=== PATIENT | female | born 1950 | race Caucasian/White ===

== ENCOUNTER 2023-06-01 10:30 | Inpatient (IN) | payer MEDICARE, MEDICAID, SELFPAY ==
[2023-06-01] VITALS (19 sets, daily range): BP systolic 104–139; BP diastolic 67–89; PULSE 108–123; RESP 20–25; TEMP 36.3–36.4; O2SAT 97–100
--- NOTE | ~2023-06-01 | US_ITS ---
EXAMINATION: US thoracentesis DATE: 06/02/2023 12:08 INDICATION: Left pleural effusion TECHNIQUE: The procedure and its risks and benefits were discussed with the patient. Potential risks discussed included bleeding, infection, and pneumothorax. The patient understood the risks and agreed to proceed. The skin was prepped and draped in sterile fashion. 1% lidocaine was used for local anes thesia. Under ultrasound guidance, a 5 Fr catheter with trochar was advanced into the left pleural ef fusion. Fluid was aspirated. The catheter was removed, and a dressing was applied. There were no imme diate complications. FINDINGS: Ultrasound images demonstrate a moderate-sized left pleural effusion and the catheter within the flui d. IMPRESSION: 1. Successful ultrasound-guided thoracentesis yielding 800 mL of dark sheila-colored fluid. Reviewed, dictated and finalized at location A. E TRAVEL IMPRESSION: 1. Successful ultrasound-guided thoracentesis yielding 800 mL of dark sheila-co lored fluid.
--- NOTE | ~2023-06-01 | XR_ITS ---
EXAMINATION: XR chest 1V portable DATE: 06/06/2023 13:27 INDICATION: Pleural effusion TECHNIQUE: frontal view of the chest was obtained. COMPARISON: Chest radiograph dated and CT dated 06/01/2023 FINDINGS: Increased gradient of basilar predominant hazy airspace opacities in the right mid to lower and left lower lung zones. There is blunting at the bilateral costophrenic angles. Triangular region of retroc ardiac consolidation at the medial left lower lung zone consistent with left lower lobe collapse. No pulmonary edema or pneumothorax. Calcified right upper lobe nodule consistent with old granulomatous disease. The cardiomediastinal silhouette is normal. Upper thoracic levoscoliosis with moderate thora cic spondylosis. Likely splenic artery embolization coils in the left upper quadrant. IMPRESSION: 1. Increased small bilateral pleural effusions with associated basilar atelectasis and/or pneumonia i ncluding likely left lower lobar collapse. Reviewed, dictated and finalized at location B. IMPRESSION: 1. Increased small bilateral pleural effusions with associated basilar atelecta sis and/or pneumonia including likely left lower lobar collapse.
--- NOTE | ~2023-06-01 | XR_ITS ---
EXAMINATION: XR chest 1V portable Exam Date/Time: 06/07/2023 16:15 CDT HISTORY: assess LLL effusion Comparison: 06/06/2023. RESULT: Lines, tubes, and devices: Left upper quadrant embolization coils. Lungs and pleura: Similar graded bilateral mid and lower lung opacities. Unchanged retrocardiac cons olidation and mild bilateral costophrenic angle blunting. Cardiomediastinal silhouette: Stable. Other: No acute osseous or upper abdominal finding. IMPRESSION: Unchanged likely left lower lobe collapse with pulmonary edema/lower lung atelectasis, and small bila teral pleural effusions. Reviewed, dictated and finalized at location K. IMPRESSION: Unchanged likely left lower lobe collapse with pulmonary edema/lower lung atele ctasis, and small bilateral pleural effusions.
--- NOTE | ~2023-06-01 | XR_ITS ---
EXAMINATION: XR chest 2V DATE: 06/01/2023 12:12 INDICATION: Weakness, pneumonia TECHNIQUE: AP and lateral views of the chest are obtained. COMPARISON: None available FINDINGS: The left lower lobe is collapsed. There is a small left pleural effusion. The cardiac silho uette is obscured. There is no pneumothorax. There is severe thoracic spondylosis. Healed left-sided rib fractures are noted. IMPRESSION: 1. Left lower lobe collapse. Recommend further evaluation with contrast-enhanced CT of the chest to e valuate for underlying etiology. 2. Small left pleural effusion. Reviewed, dictated and finalized at location B. T DESIGNER IMPRESSION: 1. Left lower lobe collapse. Recommend further evaluation with contrast-enhance d CT of the chest to evaluate for underlying etiology. 2. Small left pleural effusion.
--- NOTE | ~2023-06-01 | US_ITS ---
EXAMINATION: US venous doppler [facility] DATE: 06/02/2023 12:08 INDICATION: Lower extremity swelling TECHNIQUE: Rodrigues scale images without and with compression and Doppler images of the bilateral lower e xtremity veins were obtained. COMPARISON: None FINDINGS: The right common femoral vein, profunda femoral vein, femoral vein, popliteal vein, peroneal trunk, p osterior tibial veins, and greater saphenous vein are patent. The left common femoral vein, profunda femoral vein, femoral vein, popliteal vein, peroneal trunk, po sterior tibial veins, and greater saphenous vein are patent. IMPRESSION: 1. Patent bilateral lower extremity veins. No evidence of deep venous thrombosis. Reviewed, dictated and finalized at location L. UNT ADJUSTER IMPRESSION: 1. Patent bilateral lower extremity veins. No evidence of deep venous thrombosi s.
--- NOTE | ~2023-06-01 | CT_ITS ---
Clinical Indication: Sepsis CT Scan of the Chest, Abdomen, and Pelvis with Contrast: Technique: Contiguous sections were acquired throughout the chest, abdomen, and pelvis after intraven ous administration of 100 cc of Omnipaque 350. Dose reduction technique was used on this scan by reta youngblood automated exposure control and iterative reconstruction technique. The dose-length product (DL P) was 312.34 mGy-cm. Findings: There is no evidence of any significant mediastinal, hilar or axillary lymphadenopathy. There is exte nsive arthroscopic calcification of the aorta. Probable high-grade stenosis at the very proximal left subclavian artery. No pericardial effusion. Large left pleural effusion is present, with partial left upper lobe atelectasis and near complete le ft lower lobe atelectasis. There is a 2.3 cm fluid collection within the parenchyma of the collapsed left lower lobe (axial image 81). Small layering right pleural effusion present, with minimal right b asilar atelectatic change. There is mild to moderate emphysema in the upper lobes. Small hiatal hernia noted. There is probable diffuse fatty infiltration of liver. The gallbladder, adrenals and kidneys are with in normal limits. Probably pancreatic duct stent present with extensive pancreatic calcifications, co mpatible with chronic pancreatitis. There are probable endovascular coils at the splenic hilum region . Spleen is very heterogeneous in appearance, with some areas of probable intraparenchymal cystic amira nge or fluid collections, essentially towards the superior aspect. There are extensive vascular calcifications of the aorta and iliac vessels. There is probable high-gr suleiman stenosis of the left common iliac artery. There is probable complete occlusion of the right commo n iliac artery with reconstitution at the bifurcation. No bowel obstruction or bowel wall thickening. There is no evidence to suggest acute appendicitis. Urinary bladder is unremarkable. No adnexal mass evident. Small amount of pelvic ascites present. Impression: Large left pleural effusion with near complete left lower lobe atelectasis and partial right upper lo be atelectasis. 2.3 cm fluid collection within the parenchyma of the left lower lobe, indeterminate. Small pulmonary abscess is a potential consideration versus other cystic lesions. Small right pleural effusion. Mild to moderate upper lobe emphysema. Markedly heterogeneous appearance of the spleen with areas of intraperitoneal cystic change or fluid collection/towards the superior aspect. There are also endovascular coils in the splenic hilum. Findi ngs could reflect chronic changes related to prior splenic trauma or infarcts, versus possibly acute splenic laceration. Correlate with any relevant recent trauma. No evidence of intraperitoneal hemorrh age. Chronic pancreatitis with main pancreatic stent present. Small at the pelvic ascites. Extensive atherosclerotic disease, with high-grade stenoses at the proximal left subclavian artery, l eft common iliac artery, and complete occlusion at the right common iliac artery. Diffuse fatty infiltration of liver. Reviewed, dictated and finalized at location . WETTER Impression: Large left pleural effusion with near complete left lower lobe atelectasis and partial right upper lobe atelectasis. 2.3 cm fluid collection within the parenchyma of the left lower lobe, indetermi hamilton. Small pulmonary abscess is a potential consideration versus other cystic lesions. Small right pleural effusion. Mild to moderate upper lobe emphysema. Markedly heterogeneous appearance of the spleen with areas of intraperitoneal c ystic change or fluid collection/towards the superior aspect. There are also en
--- NOTE | ~2023-06-01 | XR_ITS ---
EXAMINATION: [id number]_[id number]_CR DATE: 06/02/2023 12:16 INDICATION: Left pleural effusion postthoracentesis TECHNIQUE: frontal view of the chest was obtained. COMPARISON: Chest radiograph dated 06/01/23 FINDINGS: Improved aeration in the left lower lung zone with some residual opacities at the left lung base whic h could represent small pleural effusion, atelectasis or pneumonia. Mild hazy opacities at the right lower lung zone suggesting additional smaller right pleural effusion and associated atelectasis versu s pneumonia. No pulmonary edema or pneumothorax. Cardiomediastinal silhouette is normal. Thoracic dex troscoliosis with moderate spondylosis. Likely splenic artery embolization coils in the left upper qu adrant. Tip of a likely pancreatic duct stent projects over the L2 vertebral body. IMPRESSION: 1. Opacities at the bilateral lower lung zones, left greater than right which could represent atelect asis, pneumonia, small pleural effusions or some combination thereof. Reviewed, dictated and finalized at location A. ORATE LICENSED BROKER IMPRESSION: 1. Opacities at the bilateral lower lung zones, left greater than right which c ould represent atelectasis, pneumonia, small pleural effusions or some combinat ion thereof.
--- NOTE | ~2023-06-01 | US_ITS ---
EXAMINATION: US arterial ankle brachial ind DATE: 06/03/2023 13:58 INDICATION: Peripheral arterial disease. TECHNIQUE: Segmental pressures and plethysmographic and Doppler waveforms of the brachial and lower e xtremity arteries were obtained. COMPARISON: None. FINDINGS: Right and left brachial artery pressures of 132 mm Hg and 119 mm Hg, respectively, are concordant (no rmal difference <= 30 mmHg). The right ankle-brachial index (DENISE) is 0.74 (normal >= 0.9-1.0). The right great toe-brachial index (TBI) is 0.48 (normal >= 0.65). Arterial Doppler waveforms are biphasic at the ankle. The left DENISE is 0.75. The left TBI is 0.36. Arterial Doppler waveforms are biphasic at the ankle. IMPRESSION: 1. Moderately decreased ABIs, consistent with arterial occlusive disease. Reviewed, dictated and finalized at location E. TZ MINER BLASTING
--- NOTE | ~2023-06-01 | XR_ITS ---
EXAMINATION: XR chest 2V DATE: 06/08/2023 13:50 INDICATION: Pleural effusion. TECHNIQUE: Frontal and lateral views of the chest were obtained. COMPARISON: Chest single view 06/07/2023 FINDINGS: There is mild scarring at the lung apices. There are moderate-sized pleural effusions. Ther e is dependent atelectasis bilaterally. No pneumothorax. The heart size is normal. There are emboliza tion coils in left upper quadrant abdomen. IMPRESSION: 1. Moderate-sized pleural effusions. Reviewed, dictated and finalized at location A.
--- NOTE | ~2023-06-01 | CT_ITS ---
CT head without contrast Indication: Mental status change Technique: Serial scans were obtained through the brain without the administration of contrast. Dose reduction technique was used on this scan by utilizing automated exposure control and iterative recon struction technique. The dose-length product (DLP) was 908.00 mGy-cm. Findings: There is no evidence of intracranial hemorrhage, mass lesion, or acute infarct. Chronic lef t frontal lobe encephalomalacia noted. The ventricles and subarachnoid spaces are dilated, consistent with moderate atrophy. Low attenuation regions are seen within the periventricular white matter marcin aterally, likely representing changes from chronic microvascular ischemic disease. Left frontal crani otomy noted. There is no evidence of edema, mass effect or midline shift. The visualized paranasal sinuses and mastoid air cells are clear. Impression: No intracranial hemorrhage, mass, or acute infarct. Chronic left frontal lobe encephalomalacia with overlying left frontal craniotomy. Atrophy and chronic white matter changes, as above. Reviewed, dictated and finalized at [facility]. FRONT END DEVELOPER Impression: No intracranial hemorrhage, mass, or acute infarct. Chronic left frontal lobe encephalomalacia with overlying left frontal cranioto my. Atrophy and chronic white matter changes, as above.
--- NOTE | 2023-06-01 10:44 | ECG_ITS ---
Measurements Intervals [place] Rate: 118 P: 76 DE: 174 QRS: -35 QRSD: 84 T: 74 QT: 324 QTc: 455 Interpretive Statements SINUS TACHYCARDIA LEFT AXIS DEVIATION NONSPECIFIC T-WAVE ABNORMALITY- HIGH LATERAL LEADS BASELINE ARTIFACT- I, III, AVR, AVL ABNORMAL ECG NO PREVIOUS ECG AVAILABLE FOR COMPARISON Electronically Signed On 06-01-2023 10:55:00 BOOM MASTER by Godfrey Brewer D.O.
[2023-06-01 11:44] LABS: Basophils Absolute Auto 0.1 K/mm3 (0.0-0.1); Basophils Percent Auto 0.3 % (0.2-1.2); Eosinophils Absolute Auto 0.1 K/mm3 (0-0.3); Eosinophils Percent Auto 0.5 % (0-4.4); Hematocrit 30.8 % (37.0-47.0); Hemoglobin 9.5 g/dL (12.0-15.0); Immature Granulocyte Absolute 0.22 K/mm3 (0.00-0.031); Immature Granulocyte Percent A 1.3 % (0-0.5); Lymphocytes Absolute Auto 1.18 K/mm3 (0.9-3.2); Lymphocytes Percent Auto 6.8 % (18.3-44.2); Mean Corpuscular HGB Conc 30.8 g/dl (32-36); Mean Corpuscular Hemoglobin 27.7 pg (26-34); Mean Corpuscular Volume 89.8 fl (80-100); Monocytes Absolute Auto 0.5 K/mm3 (0.1-0.6); Monocytes Percent Auto 2.9 % (2.6-8.5); Neutrophils Absolute Auto 15.4 K/mm3 (1.3-6.7); Neutrophils Percent Auto 88.2 % (45.5-73.1); Platelet Count Result 168 k/mm3 (150-375); Red Blood Count 3.43 M/mm3 (4.2-5.4); Red Cell Distribution Width 18.9 % (11.5-14.5); White Blood Count 17.4 K/mm3 (4.5-10.0)
[2023-06-01 11:54] LABS: INR 2.1; Prothrombin Time 25.6 Seconds (11.1-14.7)
[2023-06-01 11:55] LABS: Partial Thromboplastin Time 39.7 SECONDS (22.3-36.8)
[2023-06-01 12:11] LABS: Lactic Acid Reflex 2.7 mmol/L (0.7-2.0)
[2023-06-01 12:15] LABS: Alanine Aminotransferase 16 U/L (6-35); Albumin Level 2.2 g/dL (3.5-5.1); Alkaline Phosphatase 132 U/L (38-126); Anion Gap 4 mmol/L (8-16); Aspartate Amino Transferase 15 U/L (14-36); Bilirubin,Total 0.5 mg/dL (0.2-1.3); Blood Urea Nitrogen 11 mg/dL (7-17); Calcium 8.3 mg/dL (8.4-10.2); Carbon Dioxide 24 mmol/L (22-30); Chloride 107 mmol/L (98-107); Estimated Glomerular Filt Rate > 60; Glucose 354 mg/dL (65-110); Potassium 4.9 mmol/L (3.4-5.0); Sodium 135 mmol/L (137-145)
--- NOTE | 2023-06-01 12:19 | ED.WEAKNESS ---
HPI - Weakness General Chief complaint: Weakness Stated complaint: lethargic, C-Diff + Time Seen by Provider: 06/01/23 11:02 History of Present Illness HPI Narrative: Patient is a 72-year-old female here from a facility for concerns for worsening of mental status. She is reportedly currently being treated for C diff and pneumonia. Patient unsure of why she is here, speaks nonsensically. Unable to provide history. Spoke with Jaquelin from [facility], came there in April was admitted there with bilateral pneumonia initially. She was also diagnosed with C.diff. She is supposed to be finishing her vanco for C.diff today however continues to have diarrhea. Recently had COVID. Has poor PO intake over the last couple of days. SHe had an outpatient CXR on 05/29 which showed a left sided pneumonia. She got one dose of IM rocephin yesterday. She is more confused than normal today and weaker than usual. Yesterday she was also complaining of lower back pain. She is normally on 3L NC. Related Data Allergies Allergy/AdvReac Type Severity Reaction Status Date / Time No Known Allergies Allergy Verified 06/01/23 11:44 Review of Systems Review of Systems: ROS unobtainable: Yes unobtainable due to mental status PMFSH Social History Social History Smoking status: Former smoker Exam Narrative: GENERAL: Cachectic, ill-appearing HEAD: Normocephalic, atraumatic. EYES: PERRLA and EOMI. ENT: Nares clear. Mucous membranes moist. NECK: Supple. CHEST: Coarse bilateral breath sounds. No respiratory distress. HEART: Tachycardic. Normal peripheral pulses. ABDOMEN: Diffusely tender with some voluntary guarding. Well-healed midline surgical scar present. EXTREMITIES: Normal range of motion. No edema. SKIN: Warm, dry, no rash. NEURO: No focal deficits. Alert and oriented x1. Course Course Emergency Course: Chart review performed, patient here from [facility] for weakness, worsening altered mental status. Reportedly has pneumonia and C diff. recent detention notes state that she has enterocolitis due to C diff, failure to thrive, anemia. Triage vitals show tachycardia, tachypnea, saturating at 99% on 3 L nasal cannula. Sepsis workup ordered per protocol shows white blood cell count of 17.4, hemoglobin of 9.5, lactic mildly elevated at 2.7. Chest x-ray shows left lower lobe collapse, recommend further CT for identification. Patient seen evaluated, ill-appearing, cachectic. Concern for intrathoracic versus intra-abdominal infectious process. Will discuss with her facility for further details given patient is unable to provide history. Broad-spectrum antibiotics have been ordered in addition to the 30 cc/kg IV fluid bolus. CT chest on pelvis has been ordered as well as a CT brain. Anticipate admission. CT brain shows chronic white matter disease without any acute intracranial hemorrhage or infarct. CT chest abdomen and pelvis shows a large pleural effusion on the left side as well as a 2.3 cm fluid collection within the parent time of the collapsed left lower lung. No acute intra-abdominal pathologies, findings in the spleen consistent with prior splenic injury with coil placement. Spoke with Gretchen from hospitalist service, accepts patient for admission. Requests order for thoracentesis which was placed by myself. Patient additionally does appear to have a urinary tract infection, this should already be covered by the antibiotics that she was provided with initially. Vital Signs Vital signs: Vital Signs Temperature 97.6 F 06/01/23 10:40 Pulse Rate 119 H 06/01/23 10:40 Respiratory Rate 25 H 06/01/23 10:40 Blood Pressure 134/87 06/01/23 10:40 Pulse Oximetry 99 06/01/23 10:40 Oxygen Delivery Nasal Cannula 06/01/23 10:40 Oxygen Flow Rate 3 06/01/23 10:40 Temperature 97.6 F 06/01/23 10:40 Pulse Rate 119 H 06/01/23 13:17 Respiratory Rate 22 H 06/01/23 13:17 Blood Pressure 1
[2023-06-01 12:37] LABS: Influenza A QL RT-PCR Negative (Negative); Influenza B QL RT-PCR Negative (Negative); RSV RNA, RT-PCR Negative (Negative); SARS-CoV-2 RNA PCR Positive (Negative)
[2023-06-01 13:09] LABS: Hepatitis B Surface Antigen Negative (Negative)
[2023-06-01 13:10] LABS: Troponin I < 0.012 ng/mL (0.000-0.034)
[2023-06-01 13:13] LABS: CRP 26.3 mg/dL (<1.0)
[2023-06-01] MEDS: metroNIDAZOLE 500 MG/ISO 100ML 500 MG/100 ML BAG 100 MG IVPB (13:15)
[2023-06-01] MEDS: CEFEPIME 2 GM/NS 50 ML 2 GM/50 ML BAG IVPB (13:15)
[2023-06-01] MEDS: LACTATED RINGERS 1,000 ML 999 ML IV CONT ×3 (13:15→14:43)
[2023-06-01 13:26] LABS: HIV 1/2 Ab P24 Ag Result Negative (Negative); Hepatitis C Virus Antibody Reactive (Negative)
[2023-06-01 13:32] LABS: Appearance Urine Cloudy (Clear); Bacteria Urine None Seen /hpf; Bilirubin Urine Negative (Negative); Blood Urine Negative (Negative); Budding Yeast Urine Present /hpf; Color Urine Dark Yellow (Yellow); Glucose Urine UA 3+ mg/dL (Negative); Ketones Urine Trace mg/dL (Negative); Leukocyte Esterase Ur 1+ LEU/UL (Negative); Need Manual Microscopic Reviewed; Nitrate Urine Positive (Negative); Non Pathogenic Casts 0-2; Protein Urine Trace mg/dL (Negative); Specific Grav Ur 1.026 (1.001-1.035); Squamous Epithelial Cell Urine Moderate /hpf (Few); Urobilinogen Urine 0.2 mg/dL (<2.0); WBC Urine 21-50 /hpf; pH Urine 5.5 (5.0-9.0)
[2023-06-01 13:35] LABS: Add Urine Microscopic? YES
[2023-06-01 14:29] LABS: Troponin I < 0.012 ng/mL (0.000-0.034)
--- NOTE | 2023-06-01 14:31 | PC.NURSE ---
OJSUÉ Hammer with [facility] called for update on pt.
[2023-06-01 14:39] LABS: Reflex Lactic Acid Yes or No Add Lactic
[2023-06-01] MEDS: VANCOMYCIN 1,250 MG/NS 250 ML 1,250 MG/250 ML BAG 166.67 MG IVPB (14:43)
--- NOTE | 2023-06-01 15:02 | PC.NURSE ---
US was given information about patient POA and medications
[2023-06-01 15:17] LABS: MRSA (PCR) NOT DETECTED (NOT DETECTE)
--- NOTE | 2023-06-01 15:46 | PM.IMHP ---
H&P: HPI History of Present Illness Date/Time: 06/01/23 15:45 Chief Complaint: Weakness and increasing confusion. Narrative: This is a 72-year-old female with hypertension, hyperlipidemia, chronic obstructive pulmonary disease, chronic respiratory failure with hypoxia on oxygen, impaired fasting glucose, and gastroesophageal reflux disease who presented to the emergency department via EMS from [facility] for evaluation of weakness and increasing confusion. She is not the best historian and she has never been seen at this facility before thus the following history is limited. It is my understanding she has been at [facility] for several weeks for rehab after being hospitalized at an outside facility with bilateral pneumonia. Since admission to their facility she has been diagnosed with C diff and COVID; she is reportedly due to finish her vancomycin today and she completed a course of Paxlovid last week. She continues to have diarrhea and her oral intake has been poor. An outpatient chest x-ray taken 2 days ago showed left-sided pneumonia and she was given a dose of IM Rocephin yesterday. This morning she appeared more weak and seemed to be a bit confused and she was sent in for evaluation. At the time my evaluation she tells me that she just does not feel good. She reports body aches, nonproductive cough, pleuritic pain, and mild diarrhea. She denies headache, fever, chills, sinus congestion, sore throat, chest pain, pleuritic pain, shortness a breath, abdominal pain, nausea, vomiting, and dysuria. In the ED: She was afebrile on arrival with stable blood pressures. She has been in a sinus tachycardia with rates in the low 100s. EKG showed sinus tachycardia with left axis deviation and nonspecific T-wave abnormalities. She came back positive for SARS-CoV-2 by PCR. Urine was nitrate and leukocyte esterase positive with 21 to 50 WBC noted on microscopy though no bacteria were seen. Brain CT showed no acute findings. Chest x-ray showed left lower lobe collapse with small left pleural effusion. Subsequent CT of the chest, abdomen, and pelvis with contrast showed a large left pleural effusion with near complete left lower lobe atelectasis and partial right upper lobe atelectasis, a 2.3 cm fluid collection within the parenchymal the left lower lobe (abscess versus other cystic lesion), and other chronic findings. Review of Systems Review of Systems: Twelve systems were reviewed and are negative except for as per HPI. PMFSH Past Medical History Medical History (Updated 06/01/23 @ 23:13 by Gayatri Gomez PA-C) Atherosclerotic vascular disease CT on 06/01/2023 showed extensive atherosclerotic disease with high-grade stenosis of the proximal left subclavian artery, left common iliac artery, incomplete occlusion of the right common iliac artery. C. difficile diarrhea Chronic obstructive pulmonary disease Chronic pancreatitis Emphysema of lung Impaired fasting glucose Surgical History Surgical History (Updated 06/01/23 @ 23:08 by Gayatri Gomez PA-C) History of craniotomy History of insertion of pancreatic stent History of vascular surgery Endovascular coil in splenic hilum. Family History Family History (Updated 06/01/23 @ 23:05 by Gayatri Gomez PA-C) Other Family history unknown Social History Social History (Updated 06/01/23 @ 23:05 by Gayatri Gomez PA-C) Social History: Surrogate medical decision maker: Angelina Menendez, daughter. Code status: Full code. Smoking status: Former smoker Do You Feel Safe in your Home?: Yes Lack of Transportation: No Lack of Food: Never True Current Housing: I Have Housing Concerned About Future Housing: No Difficulty Paying Gas/Electric Bills: No Difficulty Paying for Meds: No Currently Unemployed: No Education: Decline to Answer Difficulty w/ Childcare or Family Care: No Spiritual care concerns: No Meds Home Medications and Allergies Renee
[2023-06-01 16:37] LABS: Lactic Acid 3.4 mmol/L (0.7-2.0)
--- NOTE | 2023-06-01 17:34 | PC.NURSE ---
Pt daughter & POA called for update on patient. States she can be reached at [phone] for further updates.
[2023-06-01 18:51] LABS: INR 2.1; Prothrombin Time 25.5 Seconds (11.1-14.7)
[2023-06-01] MEDS: AMPICILLIN SULB 3 GM/NS 100 ML 3 GM/100 ML VIAL IVPB (18:58)
--- NOTE | 2023-06-01 19:21 | PC.NURSE ---
Pharmacy contacted for PO vancomycin to be switch to liquid. Pt unable to swallow pills.
[2023-06-01] MEDS: VANCOMYCIN ORAL 125 MG/2.5 ML SYRUP PO (20:20)
[2023-06-01 20:33] LABS: Albumin Level 1.9 g/dL (3.5-5.1); Amylase 38 U/L (30-110); Bilirubin,Total 0.3 mg/dL (0.2-1.3); Lactate Dehydrogenase 215 U/L (120-246); Triglycerides 101 mg/dL (<150)
[2023-06-01 20:38] LABS: Cholesterol < 50 mg/dL (0-200)
[2023-06-01 21:15] LABS: Glucose Point of Care 234 mg/dl (65-105)
[2023-06-01] MEDS: INSULIN ASPART (*BKC) 100 UNITS/ML SUB-Q (21:18)
[2023-06-01 21:22] LABS: Hemoglobin A1C 8.9 % (<5.7)
--- NOTE | 2023-06-01 22:10 | ADMGEN ---
This patient, Ladan Menendez, was admitted to IMU Room 204-01. Patient/family oriented to hospital policies and general routines including ID bracelet, bed and alarms, visiting hours, pain management, procedures, bathroom and other care routines, personal items, smoking policy, room service/diet, and visiting hours. Information on how to activate the Rapid Response Team has been discussed. Patient/Family are encouraged to report perceived risks to care and to ask questions if they do not understand what they are told or what they should do.
[2023-06-02] VITALS (22 sets, daily range): BP systolic 120–142; BP diastolic 72–91; PULSE 82–125; RESP 18–28; TEMP 36.1–37; O2SAT 96–100; BMI 18.3
[2023-06-02] MEDS: NORTRIPTYLINE HCL 25 MG CAPSULE PO ×2 (00:45→20:14)
[2023-06-02] MEDS: VANCOMYCIN ORAL 125 MG/2.5 ML SYRUP PO ×2 (00:45→05:49)
[2023-06-02] MEDS: AMPICILLIN SULB 3 GM/NS 100 ML 3 GM/100 ML VIAL IVPB ×4 (00:45→17:10)
[2023-06-02] MEDS: SIMVASTATIN 10 MG TABLET PO ×2 (00:45→20:14)
[2023-06-02 05:25] LABS: Hematocrit 26.7 % (37.0-47.0); Hemoglobin 8.1 g/dL (12.0-15.0); Mean Corpuscular HGB Conc 30.3 g/dl (32-36); Mean Corpuscular Hemoglobin 27.5 pg (26-34); Mean Corpuscular Volume 90.5 fl (80-100); Mean Platelet Volume 12.7 fl (7.4-10.4); Platelet Count Result 161 k/mm3 (150-375); Red Blood Count 2.95 M/mm3 (4.2-5.4); Red Cell Distribution Width 19.3 % (11.5-14.5); White Blood Count 14.8 K/mm3 (4.5-10.0)
[2023-06-02 05:47] LABS: INR 1.7; Prothrombin Time 21.6 Seconds (11.1-14.7)
[2023-06-02 05:48] LABS: Partial Thromboplastin Time 38.7 SECONDS (22.3-36.8)
[2023-06-02 07:17] LABS: Alanine Aminotransferase 13 U/L (6-35); Alkaline Phosphatase 131 U/L (38-126); Anion Gap 6 mmol/L (8-16); Aspartate Amino Transferase 19 U/L (14-36); Bilirubin,Total 0.4 mg/dL (0.2-1.3); Blood Urea Nitrogen 12 mg/dL (7-17); Calcium 7.9 mg/dL (8.4-10.2); Carbon Dioxide 21 mmol/L (22-30); Chloride 109 mmol/L (98-107); Estimated CRCL calculation 53 ml/min; Estimated Glomerular Filt Rate > 60; Glucose 193 mg/dL (65-110); Magnesium 1.3 mg/dL (1.6-2.3); Potassium 4.5 mmol/L (3.4-5.0); Sodium 136 mmol/L (137-145)
[2023-06-02 08:08] LABS: Glucose Point of Care 205 mg/dl (65-105)
[2023-06-02] MEDS: IPRATROPIUM 0.5 MG/ALBUTEROL SULFATE 2.5 MG AMPUL.NEB 3 ML INHALATION ×3 (08:12→20:16)
[2023-06-02] MEDS: FLUTICASONE/UMECLIDIN/VILANTER 100-62.5-25 MCG ELLIPTA 1 PUFF INHALATION (08:13)
--- NOTE | 2023-06-02 10:22 | PM.IMPN ---
Progress Note: A&P Assessment and Plan (1) Pleural effusion on left: Code(s): J90 - Pleural effusion, not elsewhere classified Status: Acute Assessment and Plan: Chest CT shows large left pleural effusion and a 2.3 cm fluid collection within the parenchymal of left lower lobe -thoracentesis ordered -patient started on Unasyn and vancomycin. MRSA negative. Stopping IV vanco and added azithromycin for atypical coverage. -leukocytosis of 17.4 on admission, afebrile, tachycardic -currently on 3 L nasal cannula satting 100% -positive COVID (2) C. difficile diarrhea: Code(s): A04.72 - Enterocolitis due to Clostridium difficile, not specified as recurrent Status: Acute Assessment and Plan: Recent history of C diff and has been taking oral vanc Oral vanco stopped today No diarrhea since admission (3) Hyperglycemia: Code(s): R73.9 - Hyperglycemia, unspecified Status: Acute Assessment and Plan: Blood glucose 205 this morning Hemoglobin A1c 8.9% A.c. HS Accu-Cheks Hypoglycemia orders and corrective low-dose sliding scale (4) SARS-CoV-2 positive: Code(s): U07.1 - COVID-19 Status: Acute Assessment and Plan: Positive on admission. She has had COVID for over 2 weeks. No isolation necessary (5) Abnormal computed tomography of abdomen and pelvis: Code(s): R93.5 - Abnormal findings on diagnostic imaging of other abdominal regions, including retroperitoneum Status: Acute Assessment and Plan: CT findings as followed, Large left pleural effusion with near complete left lower lobe atelectasis and partial right upper lobe atelectasis. 2.3 cm fluid collection within the parenchyma of the left lower lobe, indeterminate. Small pulmonary abscess is a potential consideration versus other cystic lesions. Small right pleural effusion. Mild to moderate upper lobe emphysema. Markedly heterogeneous appearance of the spleen with areas of intraperitoneal cystic change or fluid collection/towards the superior aspect. There are also endovascular coils in the splenic hilum. Findings could reflect chronic changes related to prior splenic trauma or infarcts, versus possibly acute splenic laceration. Correlate with any relevant recent trauma. No evidence of intraperitoneal hemorrhage. Chronic pancreatitis with main pancreatic stent present. Small at the pelvic ascites. Extensive atherosclerotic disease, with high-grade stenoses at the proximal left subclavian artery, left common iliac artery, and complete occlusion at the right common iliac artery. Diffuse fatty infiltration of liver. (6) Abnormal urinalysis: Code(s): R82.90 - Unspecified abnormal findings in urine Status: Acute Assessment and Plan: UA shows positive nitrates, +1 leuks, 21-50 urine wbc's but no bacteria seen. Urine culture pending (7) Normocytic anemia: Code(s): D64.9 - Anemia, unspecified Status: Acute Assessment and Plan: No active signs of bleeding Hemoglobin 8.1 Will order anemia panel (8) Chronic obstructive pulmonary disease: Code(s): J44.9 - Chronic obstructive pulmonary disease, unspecified Status: Acute Assessment and Plan: Emphysema seen on imaging Patient on Symbicort and DuoNebs Currently on 3 L nasal cannula Wean oxygen as able (9) Peripheral vascular disease: Code(s): I73.9 - Peripheral vascular disease, unspecified Status: Acute Assessment and Plan: Extensive atherosclerotic disease, with high-grade stenoses at the proximal left subclavian artery, left common iliac artery, and complete occlusion at the right common iliac artery. Doppler pedal and posterior tibial pulses No evidence of acute limb ischemia Will need vascular consult Plan Feeding: Heart healthy, dietary supplements Analgesia: Tylenol Thromboembolic prophylaxis: SCDs Ulcer prophylaxis: Ppi Glycemic control: SSI low
[2023-06-02 11:07] LABS: Iron 18 ug/dL (37-170)
[2023-06-02 11:16] LABS: Percent Iron Saturation 18 % (20-50)
[2023-06-02 11:50] LABS: Glucose Point of Care 204 mg/dl (65-105)
[2023-06-02 12:22] LABS: pH Pleural Fluid > 7.500 (7.210-7.500)
[2023-06-02] MEDS: POTASSIUM CHLORIDE 20 MEQ ER TABLET PO (12:28)
[2023-06-02] MEDS: FERROUS SULFATE 325 MG TABLET DR BY MOUTH (12:28)
[2023-06-02] MEDS: ASPIRIN 81 MG ENTERIC TABLET PO (12:28)
[2023-06-02] MEDS: CALCIUM CARBONATE (OSCAL) 500 MG TABLET PO ×2 (12:28→17:10)
[2023-06-02] MEDS: METOPROLOL SUCCINATE EXT REL 25 MG TABCR PO (12:29)
[2023-06-02] MEDS: INSULIN ASPART (*BKC) 100 UNITS/ML SUB-Q ×3 (12:29→20:18)
[2023-06-02] MEDS: PANTOPRAZOLE 40 MG TABLET PO ×2 (12:29→17:10)
[2023-06-02] MEDS: DULoxetine HCL 30 MG CAPSULE.DR PO (12:30)
[2023-06-02] MEDS: AZITHROMYCIN 250 MG TABLET 500 MG PO (12:30)
[2023-06-02] MEDS: VALSARTAN 80 MG TABLET PO (12:30)
[2023-06-02] MEDS: LIPASE/AMYLASE/PROTEASE 12,000 UNITS CAP 6 CAP PO ×3 (12:30→17:10)
[2023-06-02] MEDS: MAGNESIUM SULF 2 GM/WATER 50ML 2 GM/50 ML BAG IVPB (12:35)
[2023-06-02] MEDS: MAGNESIUM OXIDE 400 MG TABLET PO (12:36)
[2023-06-02 12:40] LABS: Appearance Pleural Fluid Cloudy (Clear); Color Pleural Fluid Red (Colorless); Lymphocytes Pleural Fluid 38 %; Monocytes Pleural Fluid 9 %; Neutrophils Pleural Fluid 53 % (0-25); Nucleated Cell Pleural Fluid 744 /uL (0-1000); Pleural fluid source Pleural fluid; RBC Pleural Fluid 24000 /uL (0-0)
--- NOTE | 2023-06-02 13:25 | P.CDI_ITS ---
CDI Query Clarification Request Documentation in the medical record indicates that this patient has a: BMI <19 Comprehensive Nutrition Assessment notes: BMI 18.3 Body Mass Index Classification : Underweight Based on your medical judgement, can you further clarify, if known, in the progress notes the diagnosis associated with these findings such as: * Underweight * Cachexia * Emaciation * Malnutrition * Undernutrition * Anorexia * Other conditions (please specify) * None of the above/ Not applicable <Sruthi Melgar RN - Last Filed: 06/02/23 13:34> Clarified Diagnosis Clarified Diagnosis: Cachexia <Renae Anand APRN - Last Filed: 06/02/23 15:29>
[2023-06-02 13:43] LABS: Folic Acid 5.7 ng/mL (2.76->20)
[2023-06-02 17:08] LABS: Procalcitonin 78.7 ng/mL
[2023-06-02 17:13] LABS: Glucose Point of Care 346 mg/dl (65-105)
[2023-06-02] MEDS: IRON SUCROSE COMPLEX 300 MG in SODIUM CHLORIDE 0.9% IV 250 ML 177 MG IVPB (17:34)
[2023-06-02 20:26] LABS: Glucose Point of Care 240 mg/dl (65-105)
[2023-06-02] MEDS: ONDANSETRON INJ 4 MG/2 ML VIAL IV PUSH (22:13)
[2023-06-03] VITALS (16 sets, daily range): BP systolic 128–139; BP diastolic 75–98; PULSE 100–113; RESP 16–20; TEMP 36.1–36.7; O2SAT 95–100; BMI 18.5
[2023-06-03] MEDS: AMPICILLIN SULB 3 GM/NS 100 ML 3 GM/100 ML VIAL IVPB ×5 (00:52→23:31)
[2023-06-03 06:38] LABS: Basophils Percent Auto 0.2 % (0.2-1.2); Eosinophils Percent Auto 0.1 % (0-4.4); Hematocrit 26.9 % (37.0-47.0); Hemoglobin 8.2 g/dL (12.0-15.0); Immature Granulocyte Absolute 0.15 K/mm3 (0.00-0.031); Immature Granulocyte Percent A 1.6 % (0-0.5); Lymphocytes Absolute Auto 0.96 K/mm3 (0.9-3.2); Lymphocytes Percent Auto 10.3 % (18.3-44.2); Mean Corpuscular HGB Conc 30.5 g/dl (32-36); Mean Corpuscular Hemoglobin 27.6 pg (26-34); Mean Corpuscular Volume 90.6 fl (80-100); Mean Platelet Volume 11.3 fl (7.4-10.4); Monocytes Absolute Auto 0.4 K/mm3 (0.1-0.6); Monocytes Percent Auto 4.4 % (2.6-8.5); Neutrophils Absolute Auto 7.8 K/mm3 (1.3-6.7); Neutrophils Percent Auto 83.4 % (45.5-73.1); Nucleated Red Blood Cells Perc 0.3 % (0.0-0.2); Platelet Count Result 131 k/mm3 (150-375); Red Blood Count 2.97 M/mm3 (4.2-5.4); Red Cell Distribution Width 19.1 % (11.5-14.5); White Blood Count 9.3 K/mm3 (4.5-10.0)
[2023-06-03 06:50] LABS: Alanine Aminotransferase 13 U/L (6-35); Alkaline Phosphatase 119 U/L (38-126); Anion Gap 2 mmol/L (8-16); Aspartate Amino Transferase 14 U/L (14-36); Bilirubin,Total 0.6 mg/dL (0.2-1.3); Blood Urea Nitrogen 12 mg/dL (7-17); Calcium 7.6 mg/dL (8.4-10.2); Carbon Dioxide 25 mmol/L (22-30); Chloride 108 mmol/L (98-107); Estimated CRCL calculation 54 ml/min; Estimated Glomerular Filt Rate > 60; Glucose 200 mg/dL (65-110); Potassium 3.7 mmol/L (3.4-5.0); Sodium 135 mmol/L (137-145)
--- NOTE | 2023-06-03 07:40 | PM.IMPN ---
Progress Note: A&P Assessment and Plan (1) Pleural effusion on left: Code(s): J90 - Pleural effusion, not elsewhere classified Status: Acute Assessment and Plan: Chest CT shows large left pleural effusion and a 2.3 cm fluid collection within the parenchymal of left lower lobe -thoracentesis ordered -patient started on Unasyn and vancomycin. MRSA negative. Stopping IV vanco and added azithromycin for atypical coverage. -leukocytosis of 17.4 on admission, afebrile, tachycardic -currently on 3 L nasal cannula satting 100% -positive COVID 06/02: Patient on room air satting 97-100%. Analysis of pleural fluid a transudate with neutrophils present. Leukocytosis is resolving. (2) Hyperglycemia: Code(s): R73.9 - Hyperglycemia, unspecified Status: Acute Assessment and Plan: Blood glucose 205 this morning Hemoglobin A1c 8.9% A.c. HS Accu-Cheks Hypoglycemia orders and corrective low-dose sliding scale 06/02: Blood glucose remains in the 200s. Will start on Lantus 5 units at bedtime. (3) SARS-CoV-2 positive: Code(s): U07.1 - COVID-19 Status: Acute Assessment and Plan: Positive on admission. She has had COVID for over 2 weeks. No isolation necessary (4) Abnormal computed tomography of abdomen and pelvis: Code(s): R93.5 - Abnormal findings on diagnostic imaging of other abdominal regions, including retroperitoneum Status: Acute Assessment and Plan: CT findings as followed, Large left pleural effusion with near complete left lower lobe atelectasis and partial right upper lobe atelectasis. 2.3 cm fluid collection within the parenchyma of the left lower lobe, indeterminate. Small pulmonary abscess is a potential consideration versus other cystic lesions. Small right pleural effusion. Mild to moderate upper lobe emphysema. Markedly heterogeneous appearance of the spleen with areas of intraperitoneal cystic change or fluid collection/towards the superior aspect. There are also endovascular coils in the splenic hilum. Findings could reflect chronic changes related to prior splenic trauma or infarcts, versus possibly acute splenic laceration. Correlate with any relevant recent trauma. No evidence of intraperitoneal hemorrhage. Chronic pancreatitis with main pancreatic stent present. Small at the pelvic ascites. Extensive atherosclerotic disease, with high-grade stenoses at the proximal left subclavian artery, left common iliac artery, and complete occlusion at the right common iliac artery. Diffuse fatty infiltration of liver. 06/02: Order for ABIs placed yesterday. Awaiting for test to be completed. Suspect this is likely chronic ischemia and likely does not require urgent transfer (5) Abnormal urinalysis: Code(s): R82.90 - Unspecified abnormal findings in urine Status: Acute Assessment and Plan: UA shows positive nitrates, +1 leuks, 21-50 urine wbc's but no bacteria seen. Urine culture pending 06/02: Urine culture was inconclusive. UA was concerning for UTI however lacked bacteria. She is on Unasyn for pneumonia which should cover UTI as well. (6) Normocytic anemia: Code(s): D64.9 - Anemia, unspecified Status: Acute Assessment and Plan: No active signs of bleeding Hemoglobin 8.1 Will order anemia panel 06/02: Iron deficiency seen on labs. She was started on IV Venofer for 3 days. She is already on iron tablets. (7) Chronic obstructive pulmonary disease: Code(s): J44.9 - Chronic obstructive pulmonary disease, unspecified Status: Acute Assessment and Plan: Emphysema seen on imaging Patient on Symbicort and DuoNebs Currently on 3 L nasal cannula Wean oxygen as able 06/02: According to patient's daughter this oxygen requirement is new since her admission in March at [facility]. Today patient is seen with her oxygen on and she is satting 97-100% on room air. (8) Peripheral vascular dise
[2023-06-03] MEDS: IPRATROPIUM 0.5 MG/ALBUTEROL SULFATE 2.5 MG AMPUL.NEB 3 ML INHALATION ×3 (07:41→20:41)
[2023-06-03] MEDS: FLUTICASONE/UMECLIDIN/VILANTER 100-62.5-25 MCG ELLIPTA 1 PUFF INHALATION (07:59)
[2023-06-03 08:31] LABS: Glucose Point of Care 174 mg/dl (65-105)
[2023-06-03] MEDS: LIPASE/AMYLASE/PROTEASE 12,000 UNITS CAP 6 CAP PO ×3 (09:32→17:29)
[2023-06-03] MEDS: METOPROLOL SUCCINATE EXT REL 25 MG TABCR PO (09:33)
[2023-06-03] MEDS: AZITHROMYCIN 250 MG TABLET 500 MG PO (09:33)
[2023-06-03] MEDS: PANTOPRAZOLE 40 MG TABLET PO ×2 (09:33→17:22)
[2023-06-03] MEDS: CALCIUM CARBONATE (OSCAL) 500 MG TABLET PO ×2 (09:34→17:22)
[2023-06-03] MEDS: DULoxetine HCL 30 MG CAPSULE.DR PO (09:34)
[2023-06-03] MEDS: VALSARTAN 80 MG TABLET PO (09:34)
[2023-06-03] MEDS: ASPIRIN 81 MG ENTERIC TABLET PO (09:34)
[2023-06-03] MEDS: POTASSIUM CHLORIDE 20 MEQ ER TABLET PO (09:34)
[2023-06-03] MEDS: FERROUS SULFATE 325 MG TABLET DR BY MOUTH (09:34)
[2023-06-03] MEDS: IRON SUCROSE COMPLEX 300 MG in SODIUM CHLORIDE 0.9% IV 250 ML 177 MG IVPB (09:35)
[2023-06-03] MEDS: INSULIN ASPART (*BKC) 100 UNITS/ML SUB-Q ×3 (09:39→21:23)
[2023-06-03 09:55] LABS: Glucose Point of Care 202 mg/dl (65-105)
[2023-06-03 12:32] LABS: Glucose Point of Care 216 mg/dl (65-105)
--- NOTE | 2023-06-03 14:14 | PC.NURSE ---
Report given to Amrita RN 3 medical all questions answered. awaiting placement of midline prior to transfer
[2023-06-03] MEDS: LIDOCAINE HCL 1% LOCAL INJ 2 ML AMPUL 5 ML INFILTRATE (14:19)
--- NOTE | 2023-06-03 15:00 | PC.NURSE ---
This patient, Ladan Menendez, was received from [ IMU] on 06/03/23 at 1500. Patient/family oriented to unit policies and routines
--- NOTE | 2023-06-03 15:34 | PC.NURSE ---
Patient was covid positive at [facility] on May 17 and started paxlovid that day. Patient has improved and is now on room air. Patient is able to be off of isolation per infection control nurse.
[2023-06-03 17:00] LABS: Glucose Point of Care 261 mg/dl (65-105)
[2023-06-03] MEDS: NORTRIPTYLINE HCL 25 MG CAPSULE PO (21:22)
[2023-06-03] MEDS: INSULIN GLARGINE (*BKC) 100 UNITS/ML SUB-Q (21:22)
[2023-06-03] MEDS: SIMVASTATIN 10 MG TABLET PO (21:22)
[2023-06-03] MEDS: SALINE LOCK FLUSH 10 ML IV PUSH (21:23)
[2023-06-03 22:04] LABS: Glucose Point of Care 206 mg/dl (65-105)
[2023-06-04] VITALS (13 sets, daily range): BP systolic 112–151; BP diastolic 62–98; PULSE 100–109; RESP 16–20; TEMP 36.1–37.2; O2SAT 95–100
[2023-06-04] MEDS: SALINE LOCK FLUSH 10 ML IV PUSH ×2 (05:35→21:06)
[2023-06-04] MEDS: AMPICILLIN SULB 3 GM/NS 100 ML 3 GM/100 ML VIAL IVPB ×4 (05:35→23:21)
[2023-06-04 05:43] LABS: Basophils Percent Auto 0.4 % (0.2-1.2); Eosinophils Percent Auto 0.2 % (0-4.4); Hemoglobin 7.6 g/dL (12.0-15.0); Immature Granulocyte Absolute 0.12 K/mm3 (0.00-0.031); Immature Granulocyte Percent A 1.2 % (0-0.5); Lymphocytes Absolute Auto 1.58 K/mm3 (0.9-3.2); Lymphocytes Percent Auto 16.4 % (18.3-44.2); Mean Corpuscular HGB Conc 30.4 g/dl (32-36); Mean Corpuscular Hemoglobin 27.2 pg (26-34); Mean Corpuscular Volume 89.6 fl (80-100); Mean Platelet Volume 10.6 fl (7.4-10.4); Monocytes Absolute Auto 0.8 K/mm3 (0.1-0.6); Monocytes Percent Auto 7.8 % (2.6-8.5); Neutrophils Absolute Auto 7.1 K/mm3 (1.3-6.7); Nucleated Red Blood Cells Perc 0.2 % (0.0-0.2); Platelet Count Result 116 k/mm3 (150-375); Red Blood Count 2.79 M/mm3 (4.2-5.4); Red Cell Distribution Width 18.7 % (11.5-14.5); White Blood Count 9.6 K/mm3 (4.5-10.0)
[2023-06-04 05:54] LABS: Alanine Aminotransferase 12 U/L (6-35); Alkaline Phosphatase 94 U/L (38-126); Anion Gap 2 mmol/L (8-16); Aspartate Amino Transferase 19 U/L (14-36); Bilirubin,Total 0.6 mg/dL (0.2-1.3); Blood Urea Nitrogen 12 mg/dL (7-17); Calcium 7.7 mg/dL (8.4-10.2); Carbon Dioxide 25 mmol/L (22-30); Chloride 109 mmol/L (98-107); Estimated CRCL calculation 54 ml/min; Estimated Glomerular Filt Rate > 60; Glucose 65 mg/dL (65-110); Magnesium 1.9 mg/dL (1.6-2.3); Sodium 136 mmol/L (137-145)
--- NOTE | 2023-06-04 07:50 | PM.IMPN ---
Progress Note: A&P Assessment and Plan (1) Pleural effusion on left: Code(s): J90 - Pleural effusion, not elsewhere classified Status: Acute Assessment and Plan: Chest CT shows large left pleural effusion and a 2.3 cm fluid collection within the parenchymal of left lower lobe -thoracentesis ordered -patient started on Unasyn and vancomycin. MRSA negative. Stopping IV vanco and added azithromycin for atypical coverage. -leukocytosis of 17.4 on admission, afebrile, tachycardic -currently on 3 L nasal cannula satting 100% -positive COVID 06/02: Patient on room air sating 97-100%. Analysis of pleural fluid a transudate with neutrophils present. Leukocytosis is resolving. 06/03: White count 9.6. Patient has been afebrile. She still does not require oxygen. Satting 97% air. Pleural fluid studies still pending. (2) Hyperglycemia: Code(s): R73.9 - Hyperglycemia, unspecified Status: Acute Assessment and Plan: Blood glucose 205 this morning Hemoglobin A1c 8.9% A.c. HS Accu-Cheks Hypoglycemia orders and corrective low-dose sliding scale 06/02: Blood glucose remains in the 200s. Will start on Lantus 5 units at bedtime. 06/03: Glucose on BMP was 65. Will stop HS sliding scale insulin. POC glucose was 56. Stopping Lantus. Started on D5 normal saline 100 for today. (3) SARS-CoV-2 positive: Code(s): U07.1 - COVID-19 Status: Acute Assessment and Plan: Positive on admission. She has had COVID for over 2 weeks. No isolation necessary RESOLVED. (4) Abnormal computed tomography of abdomen and pelvis: Code(s): R93.5 - Abnormal findings on diagnostic imaging of other abdominal regions, including retroperitoneum Status: Acute Assessment and Plan: CT findings as followed, Large left pleural effusion with near complete left lower lobe atelectasis and partial right upper lobe atelectasis. 2.3 cm fluid collection within the parenchyma of the left lower lobe, indeterminate. Small pulmonary abscess is a potential consideration versus other cystic lesions. Small right pleural effusion. Mild to moderate upper lobe emphysema. Markedly heterogeneous appearance of the spleen with areas of intraperitoneal cystic change or fluid collection/towards the superior aspect. There are also endovascular coils in the splenic hilum. Findings could reflect chronic changes related to prior splenic trauma or infarcts, versus possibly acute splenic laceration. Correlate with any relevant recent trauma. No evidence of intraperitoneal hemorrhage. Chronic pancreatitis with main pancreatic stent present. Small at the pelvic ascites. Extensive atherosclerotic disease, with high-grade stenoses at the proximal left subclavian artery, left common iliac artery, and complete occlusion at the right common iliac artery. Diffuse fatty infiltration of liver. 06/02: Order for ABIs placed yesterday. Awaiting for test to be completed. Suspect this is likely chronic ischemia and likely does not require urgent transfer 06/03: Moderately decreased ABIs, consistent with arterial occlusive disease. (5) Abnormal urinalysis: Code(s): R82.90 - Unspecified abnormal findings in urine Status: Acute Assessment and Plan: UA shows positive nitrates, +1 leuks, 21-50 urine wbc's but no bacteria seen. Urine culture pending 06/02: Urine culture was inconclusive. UA was concerning for UTI however lacked bacteria. She is on Unasyn for pneumonia which should cover UTI as well. (6) Normocytic anemia: Code(s): D64.9 - Anemia, unspecified Status: Acute Assessment and Plan: No active signs of bleeding Hemoglobin 8.1 Will order anemia panel 06/02: Iron deficiency seen on labs. She was started on IV Venofer for 3 days. She is already on iron tablets. 06/03: Hgb has been down trending since admission. Hgb 9.5->8.1->7.6. No overt signs of bleeding. Will transfuse hgb if less than 7g/dl.
--- NOTE | 2023-06-04 08:50 | PC.NURSE ---
pt critical blood glucose 56 so hypoglycemia protocol started and pt drank yulissajuice
[2023-06-04 08:56] LABS: Glucose Point of Care 56 mg/dl (65-105)
[2023-06-04] MEDS: IRON SUCROSE COMPLEX 300 MG in SODIUM CHLORIDE 0.9% IV 250 ML 177 MG IVPB (09:10)
[2023-06-04 09:57] LABS: Glucose Point of Care 92 mg/dl (65-105)
[2023-06-04 09:57] LABS: Glucose Point of Care 95 mg/dl (65-105)
[2023-06-04] MEDS: DEXTROSE 5%/0.9% SOD CHL 1,000 ML 75 ML IV CONT ×2 (10:34→21:07)
[2023-06-04] MEDS: AZITHROMYCIN 250 MG TABLET 500 MG PO (11:12)
[2023-06-04] MEDS: LIPASE/AMYLASE/PROTEASE 12,000 UNITS CAP 6 CAP PO ×2 (11:12→17:33)
[2023-06-04] MEDS: POTASSIUM CHLORIDE 20 MEQ ER TABLET PO (11:13)
[2023-06-04] MEDS: VALSARTAN 80 MG TABLET PO (11:13)
[2023-06-04] MEDS: ASPIRIN 81 MG ENTERIC TABLET PO (11:13)
[2023-06-04] MEDS: METOPROLOL SUCCINATE EXT REL 25 MG TABCR PO (11:13)
[2023-06-04] MEDS: CALCIUM CARBONATE (OSCAL) 500 MG TABLET PO ×2 (11:13→17:33)
[2023-06-04] MEDS: DULoxetine HCL 30 MG CAPSULE.DR PO (11:13)
[2023-06-04] MEDS: FERROUS SULFATE 325 MG TABLET DR BY MOUTH (11:13)
[2023-06-04] MEDS: PANTOPRAZOLE 40 MG TABLET PO ×2 (11:13→17:33)
--- NOTE | 2023-06-04 11:41 | PCOTNOTE ---
Attempted to see for OT evaluation. Patient adamantly declining any/all activity at this time. Patient's daughter present and also trying to encourage patient to work with therapy. She continued to decline. Will continue to attempt.
[2023-06-04 13:26] LABS: Glucose Point of Care 148 mg/dl (65-105)
--- NOTE | 2023-06-04 15:48 | PCPTNOTE ---
pt refused PT eval
[2023-06-04 17:27] LABS: Glucose Point of Care 232 mg/dl (65-105)
[2023-06-04] MEDS: INSULIN ASPART (*BKC) 100 UNITS/ML SUB-Q (17:34)
[2023-06-04] MEDS: IPRATROPIUM 0.5 MG/ALBUTEROL SULFATE 2.5 MG AMPUL.NEB 3 ML INHALATION (19:47)
[2023-06-04] MEDS: SIMVASTATIN 10 MG TABLET PO (21:05)
[2023-06-04] MEDS: NORTRIPTYLINE HCL 25 MG CAPSULE PO (21:05)
[2023-06-05] VITALS (22 sets, daily range): BP systolic 118–157; BP diastolic 81–110; PULSE 73–118; RESP 15–20; TEMP 36.1–37; O2SAT 92–99
--- NOTE | 2023-06-05 03:25 | PC.NURSE ---
Daylight Savings Time For Daylight Savings Time Ending in the Fall - Clocks are moved back. For Daylight Savings Time Beginning in the Spring - Clocks are moved ahead. For [facility], the time of change occurs at 0200 hrs. Time is taken from the seismic observer. This entry on the patient's chart recognizes the change in time reflected during documentation. Example: 2 entries for vital signs may be charted for 0200 hrs.
[2023-06-05 04:16] LABS: Glucose Point of Care 242 mg/dl (65-105)
[2023-06-05 04:25] LABS: Pneumococcal Antigen Urine Not Detected (Not Detected)
[2023-06-05] MEDS: AMPICILLIN SULB 3 GM/NS 100 ML 3 GM/100 ML VIAL IVPB ×3 (05:11→17:37)
[2023-06-05 05:27] LABS: Basophils Percent Auto 0.3 % (0.2-1.2); Eosinophils Percent Auto 0.1 % (0-4.4); Hematocrit 21.7 % (37.0-47.0); Immature Granulocyte Absolute 0.12 K/mm3 (0.00-0.031); Immature Granulocyte Percent A 1.5 % (0-0.5); Lymphocytes Absolute Auto 1.21 K/mm3 (0.9-3.2); Lymphocytes Percent Auto 15.5 % (18.3-44.2); Mean Corpuscular HGB Conc 30.9 g/dl (32-36); Mean Corpuscular Hemoglobin 27.3 pg (26-34); Mean Corpuscular Volume 88.6 fl (80-100); Mean Platelet Volume 11.3 fl (7.4-10.4); Monocytes Absolute Auto 0.5 K/mm3 (0.1-0.6); Monocytes Percent Auto 6.4 % (2.6-8.5); Neutrophils Percent Auto 76.2 % (45.5-73.1); Platelet Count Result 98 k/mm3 (150-375); Red Blood Count 2.45 M/mm3 (4.2-5.4); Red Cell Distribution Width 18.4 % (11.5-14.5); White Blood Count 7.8 K/mm3 (4.5-10.0)
[2023-06-05 05:31] LABS: Hemoglobin 6.7 g/dL (12.0-15.0)
[2023-06-05 05:43] LABS: Alanine Aminotransferase 11 U/L (6-35); Albumin Level 1.8 g/dL (3.5-5.1); Alkaline Phosphatase 95 U/L (38-126); Anion Gap -2 mmol/L (8-16); Aspartate Amino Transferase 16 U/L (14-36); Bilirubin,Total 0.5 mg/dL (0.2-1.3); Blood Urea Nitrogen 8 mg/dL (7-17); Calcium 7.2 mg/dL (8.4-10.2); Carbon Dioxide 27 mmol/L (22-30); Chloride 108 mmol/L (98-107); Estimated CRCL calculation 54 ml/min; Estimated Glomerular Filt Rate > 60; Glucose 275 mg/dL (65-110); Hypochromasia 1+ (NORMAL); Magnesium 1.6 mg/dL (1.6-2.3); Platelet Estimate Decreased (Adequate); Potassium 3.6 mmol/L (3.4-5.0); Sodium 133 mmol/L (137-145)
[2023-06-05 05:44] LABS: Anisocytosis 1+ (NORMAL); Schistocytes None Seen (NORMAL); Target Cells 1+ (NORMAL)
[2023-06-05 08:23] LABS: Glucose Point of Care 282 mg/dl (65-105)
[2023-06-05] MEDS: INSULIN ASPART (*BKC) 100 UNITS/ML SUB-Q ×2 (08:37→17:32)
--- NOTE | 2023-06-05 09:31 | PM.IMPN ---
Progress Note: A&P Assessment and Plan (1) Pleural effusion on left: Code(s): J90 - Pleural effusion, not elsewhere classified Status: Acute Assessment and Plan: Chest CT shows large left pleural effusion and a 2.3 cm fluid collection within the parenchymal of left lower lobe -thoracentesis ordered -patient started on Unasyn and vancomycin. MRSA negative. Stopping IV vanco and added azithromycin for atypical coverage. -leukocytosis of 17.4 on admission, afebrile, tachycardic -currently on 3 L nasal cannula satting 100% -positive COVID 06/02: Patient on room air sating 97-100%. Analysis of pleural fluid a transudate with neutrophils present. Leukocytosis is resolving. 06/03: White count 9.6. Patient has been afebrile. She still does not require oxygen. Satting 97% air. Pleural fluid studies still pending. 06/04: WBC 7.8 today. Preop cultures on pleural fluid with no organism seen. Blood cultures with no growth today. Urine culture was inconclusive. Patient is not requiring oxygen and she is not short of breath. Should be able to deescalate her antibiotics to oral today. (2) Hyperglycemia: Code(s): R73.9 - Hyperglycemia, unspecified Status: Acute Assessment and Plan: Blood glucose 205 this morning Hemoglobin A1c 8.9% A.c. HS Accu-Cheks Hypoglycemia orders and corrective low-dose sliding scale 06/02: Blood glucose remains in the 200s. Will start on Lantus 5 units at bedtime. 06/03: Glucose on BMP was 65. Will stop HS sliding scale insulin. POC glucose was 56. Stopping Lantus. Started on D5 normal saline 100 for today. 06/04: Stopped Lantus, stop dextrose infusion, continue with low-dose sliding scale (3) SARS-CoV-2 positive: Code(s): U07.1 - COVID-19 Status: Acute Assessment and Plan: Positive on admission. She has had COVID for over 2 weeks. No isolation necessary RESOLVED. (4) Abnormal computed tomography of abdomen and pelvis: Code(s): R93.5 - Abnormal findings on diagnostic imaging of other abdominal regions, including retroperitoneum Status: Acute Assessment and Plan: CT findings as followed, Large left pleural effusion with near complete left lower lobe atelectasis and partial right upper lobe atelectasis. 2.3 cm fluid collection within the parenchyma of the left lower lobe, indeterminate. Small pulmonary abscess is a potential consideration versus other cystic lesions. Small right pleural effusion. Mild to moderate upper lobe emphysema. Markedly heterogeneous appearance of the spleen with areas of intraperitoneal cystic change or fluid collection/towards the superior aspect. There are also endovascular coils in the splenic hilum. Findings could reflect chronic changes related to prior splenic trauma or infarcts, versus possibly acute splenic laceration. Correlate with any relevant recent trauma. No evidence of intraperitoneal hemorrhage. Chronic pancreatitis with main pancreatic stent present. Small at the pelvic ascites. Extensive atherosclerotic disease, with high-grade stenoses at the proximal left subclavian artery, left common iliac artery, and complete occlusion at the right common iliac artery. Diffuse fatty infiltration of liver. 06/02: Order for ABIs placed yesterday. Awaiting for test to be completed. Suspect this is likely chronic ischemia and likely does not require urgent transfer 06/03: Moderately decreased ABIs, consistent with arterial occlusive disease. (5) Abnormal urinalysis: Code(s): R82.90 - Unspecified abnormal findings in urine Status: Acute Assessment and Plan: UA shows positive nitrates, +1 leuks, 21-50 urine wbc's but no bacteria seen. Urine culture pending 06/02: Urine culture was inconclusive. UA was concerning for UTI however lacked bacteria. She is on Unasyn for pneumonia which should cover UTI as well. (6) Normocytic anemia: Code(s): D64.9 - Anemia, unspecified
[2023-06-05] MEDS: METOPROLOL SUCCINATE EXT REL 25 MG TABCR PO (09:55)
[2023-06-05] MEDS: FERROUS SULFATE 325 MG TABLET DR BY MOUTH (09:55)
[2023-06-05] MEDS: LIPASE/AMYLASE/PROTEASE 12,000 UNITS CAP 6 CAP PO ×3 (09:56→17:35)
[2023-06-05] MEDS: CALCIUM CARBONATE (OSCAL) 500 MG TABLET PO ×2 (09:56→17:35)
[2023-06-05] MEDS: ASPIRIN 81 MG ENTERIC TABLET PO (09:56)
[2023-06-05] MEDS: POTASSIUM CHLORIDE 20 MEQ ER TABLET PO (09:56)
[2023-06-05] MEDS: DULoxetine HCL 30 MG CAPSULE.DR PO (09:57)
[2023-06-05] MEDS: AZITHROMYCIN 250 MG TABLET 500 MG PO (09:57)
[2023-06-05] MEDS: PANTOPRAZOLE 40 MG TABLET PO ×2 (09:57→17:35)
[2023-06-05] MEDS: VALSARTAN 80 MG TABLET PO (09:57)
[2023-06-05] MEDS: IPRATROPIUM 0.5 MG/ALBUTEROL SULFATE 2.5 MG AMPUL.NEB 3 ML INHALATION ×3 (10:20→20:48)
[2023-06-05] MEDS: FLUTICASONE/UMECLIDIN/VILANTER 100-62.5-25 MCG ELLIPTA 1 PUFF INHALATION (10:30)
[2023-06-05 12:24] LABS: Glucose Point of Care 198 mg/dl (65-105)
[2023-06-05] MEDS: ACIDOPHILUS/BULGARICUS CHEWABLE TABLET 1 TABLET PO ×3 (13:18→20:43)
[2023-06-05 14:54] LABS: Hepatitis C RNA, Quant PCR <15 IU/mL
[2023-06-05 17:24] LABS: Glucose Point of Care 228 mg/dl (65-105)
[2023-06-05] MEDS: SIMVASTATIN 10 MG TABLET PO (20:43)
[2023-06-05] MEDS: SALINE LOCK FLUSH 10 ML IV PUSH (20:43)
[2023-06-05] MEDS: NORTRIPTYLINE HCL 25 MG CAPSULE PO (20:43)
[2023-06-06] VITALS (14 sets, daily range): BP systolic 116–147; BP diastolic 85–96; PULSE 92–113; RESP 14–21; TEMP 36.3–36.4; O2SAT 93–100
[2023-06-06] MEDS: AMPICILLIN SULB 3 GM/NS 100 ML 3 GM/100 ML VIAL IVPB ×4 (00:15→17:54)
[2023-06-06] MEDS: SALINE LOCK FLUSH 10 ML IV PUSH ×3 (05:22→21:11)
[2023-06-06 06:37] LABS: Basophils Absolute Auto 0.1 K/mm3 (0.0-0.1); Basophils Percent Auto 0.4 % (0.2-1.2); Eosinophils Percent Auto 0.1 % (0-4.4); Hematocrit 31.1 % (37.0-47.0); Hemoglobin 9.9 g/dL (12.0-15.0); Immature Granulocyte Absolute 0.22 K/mm3 (0.00-0.031); Immature Granulocyte Percent A 1.6 % (0-0.5); Lymphocytes Absolute Auto 1.79 K/mm3 (0.9-3.2); Lymphocytes Percent Auto 13.4 % (18.3-44.2); Mean Corpuscular HGB Conc 31.8 g/dl (32-36); Mean Corpuscular Volume 87.9 fl (80-100); Mean Platelet Volume 11.5 fl (7.4-10.4); Monocytes Absolute Auto 0.8 K/mm3 (0.1-0.6); Monocytes Percent Auto 6.2 % (2.6-8.5); Neutrophils Absolute Auto 10.5 K/mm3 (1.3-6.7); Neutrophils Percent Auto 78.3 % (45.5-73.1); Nucleated Red Blood Cells Perc 0.1 % (0.0-0.2); Platelet Count Result 124 k/mm3 (150-375); Red Blood Count 3.54 M/mm3 (4.2-5.4); Red Cell Distribution Width 17.9 % (11.5-14.5); White Blood Count 13.4 K/mm3 (4.5-10.0)
[2023-06-06 06:48] LABS: Alanine Aminotransferase 12 U/L (6-35); Alkaline Phosphatase 117 U/L (38-126); Anion Gap 5 mmol/L (8-16); Aspartate Amino Transferase 16 U/L (14-36); Bilirubin,Total 0.7 mg/dL (0.2-1.3); Blood Urea Nitrogen 6 mg/dL (7-17); Calcium 7.5 mg/dL (8.4-10.2); Carbon Dioxide 21 mmol/L (22-30); Chloride 108 mmol/L (98-107); Estimated CRCL calculation 66 ml/min; Estimated Glomerular Filt Rate > 60; Glucose 202 mg/dL (65-110); Magnesium 1.6 mg/dL (1.6-2.3); Potassium 3.3 mmol/L (3.4-5.0); Sodium 134 mmol/L (137-145)
[2023-06-06 07:03] LABS: Prealbumin 5.3 mg/dL (17.6-36.0)
[2023-06-06] MEDS: IPRATROPIUM 0.5 MG/ALBUTEROL SULFATE 2.5 MG AMPUL.NEB 3 ML INHALATION ×3 (07:55→21:18)
[2023-06-06] MEDS: FLUTICASONE/UMECLIDIN/VILANTER 100-62.5-25 MCG ELLIPTA 1 PUFF INHALATION (07:55)
[2023-06-06 08:00] LABS: Glucose Point of Care 161 mg/dl (65-105)
--- NOTE | 2023-06-06 08:25 | PM.IMPN ---
Progress Note: A&P Assessment and Plan (1) Pleural effusion on left: Code(s): J90 - Pleural effusion, not elsewhere classified Status: Acute Assessment and Plan: Chest CT shows large left pleural effusion and a 2.3 cm fluid collection within the parenchymal of left lower lobe -thoracentesis ordered -patient started on Unasyn and vancomycin. MRSA negative. Stopping IV vanco and added azithromycin for atypical coverage. -leukocytosis of 17.4 on admission, afebrile, tachycardic -currently on 3 L nasal cannula sating 100% -positive COVID 06/02: Patient on room air sating 97-100%. Analysis of pleural fluid a transudate with neutrophils present. Leukocytosis is resolving. 06/03: White count 9.6. Patient has been afebrile. She still does not require oxygen. Sating 97% air. Pleural fluid studies still pending. 06/04: WBC 7.8 today. Preop cultures on pleural fluid with no organism seen. Blood cultures with no growth today. Urine culture was inconclusive. Patient is not requiring oxygen and she is not short of breath. Should be able to deescalate her antibiotics to oral today. 06/05: No organism seen on pleural Gram stain. Anaerobic and anaerobic cultures from pleural fluid of no growth with no organisms seen. Her white count jumped today does 13 after 1 unit of blood. Will repeat CBC at noon today. Repeat chest x-ray (2) Hyperglycemia: Code(s): R73.9 - Hyperglycemia, unspecified Status: Acute Assessment and Plan: Blood glucose 205 this morning Hemoglobin A1c 8.9% A.c. HS Accu-Cheks Hypoglycemia orders and corrective low-dose sliding scale 06/02: Blood glucose remains in the 200s. Will start on Lantus 5 units at bedtime. 06/03: Glucose on BMP was 65. Will stop HS sliding scale insulin. POC glucose was 56. Stopping Lantus. Started on D5 normal saline 100 for today. 06/04: Stopped Lantus, stop dextrose infusion, continue with low-dose sliding scale 06/05: Blood sugars reviewed. Glucose is ranging from 161-282. (3) SARS-CoV-2 positive: Code(s): U07.1 - COVID-19 Status: Acute Assessment and Plan: Positive on admission. She has had COVID for over 2 weeks. No isolation necessary RESOLVED. (4) Abnormal computed tomography of abdomen and pelvis: Code(s): R93.5 - Abnormal findings on diagnostic imaging of other abdominal regions, including retroperitoneum Status: Acute Assessment and Plan: CT findings as followed, Large left pleural effusion with near complete left lower lobe atelectasis and partial right upper lobe atelectasis. 2.3 cm fluid collection within the parenchyma of the left lower lobe, indeterminate. Small pulmonary abscess is a potential consideration versus other cystic lesions. Small right pleural effusion. Mild to moderate upper lobe emphysema. Markedly heterogeneous appearance of the spleen with areas of intraperitoneal cystic change or fluid collection/towards the superior aspect. There are also endovascular coils in the splenic hilum. Findings could reflect chronic changes related to prior splenic trauma or infarcts, versus possibly acute splenic laceration. Correlate with any relevant recent trauma. No evidence of intraperitoneal hemorrhage. Chronic pancreatitis with main pancreatic stent present. Small at the pelvic ascites. Extensive atherosclerotic disease, with high-grade stenoses at the proximal left subclavian artery, left common iliac artery, and complete occlusion at the right common iliac artery. Diffuse fatty infiltration of liver. 06/02: Order for ABIs placed yesterday. Awaiting for test to be completed. Suspect this is likely chronic ischemia and likely does not require urgent transfer 06/03: Moderately decreased ABIs, consistent with arterial occlusive disease. (5) Abnormal urinalysis: Code(s): R82.90 - Unspecified abnormal findings in urine Status: Acute Assessment and Plan: UA shows positive nitra
[2023-06-06] MEDS: LIPASE/AMYLASE/PROTEASE 12,000 UNITS CAP 6 CAP PO ×3 (08:28→17:53)
[2023-06-06] MEDS: DULoxetine HCL 30 MG CAPSULE.DR PO (08:28)
[2023-06-06] MEDS: CALCIUM CARBONATE (OSCAL) 500 MG TABLET PO ×2 (08:28→17:53)
[2023-06-06] MEDS: FERROUS SULFATE 325 MG TABLET DR BY MOUTH (08:28)
[2023-06-06] MEDS: ASPIRIN 81 MG ENTERIC TABLET PO (08:28)
[2023-06-06] MEDS: SENNOSIDES 8.6 MG TABLET PO (08:28)
[2023-06-06] MEDS: POTASSIUM CHLORIDE 20 MEQ ER TABLET PO (08:28)
[2023-06-06] MEDS: METOPROLOL SUCCINATE EXT REL 25 MG TABCR PO (08:29)
[2023-06-06] MEDS: VALSARTAN 80 MG TABLET PO (08:29)
[2023-06-06] MEDS: PANTOPRAZOLE 40 MG TABLET PO ×2 (08:29→17:53)
[2023-06-06] MEDS: AZITHROMYCIN 250 MG TABLET 500 MG PO (08:29)
[2023-06-06] MEDS: ACIDOPHILUS/BULGARICUS CHEWABLE TABLET 1 TABLET PO ×4 (08:29→21:09)
[2023-06-06] MEDS: MAGNESIUM OXIDE 400 MG TABLET PO (08:35)
[2023-06-06] MEDS: POTASSIUM CHLORIDE 20 MEQ ER TABLET 40 MEQ PO (08:36)
--- NOTE | 2023-06-06 11:17 | PDONCCN ---
HPI - Date of Consult Date/Time: 06/07/23 18:00 <WilianUrinat Moore - 06/07/23 18:02> 06/06/23 11:17 <Cris May - 06/06/23 11:19> Requesting Physician: Jimmy Simeon MD <Uri Cedeno - 06/07/23 18:02> Jimmy Simeon MD <Cris May - 06/06/23 11:19> Primary Care Provider: Raul Montgomery MD <Uri Cedeno - 06/07/23 18:02> UNKNOWN,DOCTOR <Cris May - 06/06/23 11:19> - Consult Narrative Reason for consult: Thrombocytopenia <Cris May - 06/06/23 11:19> Narrative: Ladan Menendez is a 72 year old female <WilianUrinat Moore - 06/07/23 18:02> Ladan Menendez is a 72 year old female with a past medical history of HTN, HLD, COPD, respiratory failure, ITP, GERD, whom was admitted for weakness and altered mental status from [facility]. Upon exam, patient is oriented to self and history is taken from chart review. CT scan shows large left pleural effusion, emphysema, markedly heterogeneous appearance of the spleen with areas of intraperitoneal cystic change or fluid collection/towards the superior aspect. There are also endovascular coils in the splenic hilum. Findings could reflect chronic changes related to prior splenic trauma or infarcts, versus possibly acute splenic laceration, diffuse fatty liver, and extensive atherosclerotic disease. Thoracentesis was performed. She was also found to be COVID + two weeks ago and had cdiff infection. Labs are notable for Hgb 9.9, Hct 31, WBC 13.4, Plt 124,000. Iron studies were low on 06/01 and received an iron infusion. . <Cris May - 06/06/23 11:26> Review of Systems - Review of Systems unobtainable due to mental status <Cris May - 06/06/23 11:26> [facility] Medical History: Medical History (Last Reviewed 06/01/23 @ 23:04 by Gayatri Gomez PA-C) Atherosclerotic vascular disease CT on 06/01/2023 showed extensive atherosclerotic disease with high-grade stenosis of the proximal left subclavian artery, left common iliac artery, incomplete occlusion of the right common iliac artery. C. difficile diarrhea Chronic obstructive pulmonary disease Chronic pancreatitis Emphysema of lung Impaired fasting glucose <WilianUriRonaldo - 06/07/23 18:02> Medical History (Last Reviewed 06/01/23 @ 23:04 by Gayatri Gomez PA-C) Atherosclerotic vascular disease CT on 06/01/2023 showed extensive atherosclerotic disease with high-grade stenosis of the proximal left subclavian artery, left common iliac artery, incomplete occlusion of the right common iliac artery. C. difficile diarrhea Chronic obstructive pulmonary disease Chronic pancreatitis Emphysema of lung Impaired fasting glucose <Cris May - 06/06/23 11:19> Surgical History: Surgical History (Last Updated 06/01/23 @ 23:08 by Gayatri Gomez PA-C) History of craniotomy History of insertion of pancreatic stent History of vascular surgery Endovascular coil in splenic hilum. <Uri Cedeno - 06/07/23 18:02> Surgical History (Last Updated 06/01/23 @ 23:08 by Gayatri Gomez PA-C) History of craniotomy History of insertion of pancreatic stent History of vascular surgery Endovascular coil in splenic hilum. <Cris May - 06/06/23 11:19> Family History: Family History (Last Reviewed 06/01/23 @ 23:34 by Marta Pineda RN) Other Family history unknown <Uri Cedeno - 06/07/23 18:02> Family History (Last Reviewed 06/01/23 @ 23:34 by Marta Pineda RN) Other Family history unknown <Cris May - 06/06/23 11:19> - Social History Social History: Social History (Last Updated 06/01/23 @ 23:05 by Gayatri Gomez PA-C) Others: Spiritual care concerns: No Smoking Status: Smoking status: Former smoker Social Determinants of Health: Do You Feel Safe in your Home?: Yes
--- NOTE | 2023-06-06 11:58 | PCNFU ---
Nutrition Follow-Up Complete: Inadequate energy intake related to NPO status as evidenced by current diet orders Goal:Diet order Pt current nutrition is Minced and moist level 5, heart healthy, Ensure compact BID, DUTCH BID. Nutrition recommendation: Increase Ensure to TID Last recorded weight is 49.9 kg. Bowel Motility: +BM 06/05 Labs Reviewed: Hgb:9.9, HCT:31.1, Alb:2.0, NA:134, K:3.3, BUN:6, CR:0.5 Meds Noted: novolog, protonix, KCL Skin: DTPI, maceration to sacrum Additional Notes: Pt diet advanced to Minced and moist level 5, heart healthy. Intake poor per nursing, charted at 25-50%. Pt lethargic while in room. Assist with meals, encourage po intake of meals and supplements, will increase ensure compact to TID Monitor diet orders, intake, wt, labs. Follow up in 3 days.
[2023-06-06 12:13] LABS: Glucose Point of Care 182 mg/dl (65-105)
[2023-06-06 13:27] LABS: Basophils Absolute Auto 0.1 K/mm3 (0.0-0.1); Basophils Percent Auto 0.4 % (0.2-1.2); Eosinophils Percent Auto 0.1 % (0-4.4); Hematocrit 30.9 % (37.0-47.0); Hemoglobin 9.8 g/dL (12.0-15.0); Immature Granulocyte Absolute 0.21 K/mm3 (0.00-0.031); Immature Granulocyte Percent A 1.5 % (0-0.5); Lymphocytes Absolute Auto 1.55 K/mm3 (0.9-3.2); Lymphocytes Percent Auto 11.3 % (18.3-44.2); Mean Corpuscular HGB Conc 31.7 g/dl (32-36); Mean Corpuscular Hemoglobin 27.9 pg (26-34); Mean Platelet Volume 11.6 fl (7.4-10.4); Monocytes Absolute Auto 0.7 K/mm3 (0.1-0.6); Neutrophils Absolute Auto 11.3 K/mm3 (1.3-6.7); Neutrophils Percent Auto 81.7 % (45.5-73.1); Nucleated Red Blood Cells Perc 0.1 % (0.0-0.2); Platelet Count Result 136 k/mm3 (150-375); Red Blood Count 3.51 M/mm3 (4.2-5.4); Red Cell Distribution Width 18.2 % (11.5-14.5); White Blood Count 13.8 K/mm3 (4.5-10.0)
[2023-06-06 14:29] LABS: Mycoplasma IgM Antibody Titer 723 U/mL (<770)
[2023-06-06] MEDS: FUROSEMIDE INJ 40 MG/4 ML VIAL IV PUSH (16:34)
[2023-06-06 17:29] LABS: NT Pro B Type Natriuretic Pept 6640 pg/mL (19.9-100)
[2023-06-06 17:31] LABS: Glucose Point of Care 211 mg/dl (65-105)
[2023-06-06] MEDS: INSULIN ASPART (*BKC) 100 UNITS/ML SUB-Q (17:54)
[2023-06-06] MEDS: NORTRIPTYLINE HCL 25 MG CAPSULE PO (21:09)
[2023-06-06] MEDS: SIMVASTATIN 10 MG TABLET PO (21:09)
[2023-06-07] VITALS (15 sets, daily range): BP systolic 130–149; BP diastolic 74–96; PULSE 44–118; RESP 16–21; TEMP 36.3–37.3; O2SAT 95–100
--- NOTE | 2023-06-07 | ECHO_ITS ---
Patient Info Name: Ladan Menendez Age: 72 years : 1950 Gender: Female Ht: 62 in Wt: 110 lbs BSA: 1.48 m2 HR: 101 bpm BP: 132 / 96 mmHg Heart Rhythm: Tachycardia Technical Quality: Poor Exam Date: 06/07/2023 9:00 AM Exam Location: Echo Lab Patient Status: Inpatient Admit Date: 06/01/2023 Staff Ordering Physician: Renae Anand APRN Lead Software Test Engineer: Naye Estrella RDCS Attending Provider: Jimmy Simeon MD Referring Physician: Kika DE LEÓN; Exam Type: CA echo doppler color flow Study Info Indications - recurrent pleural effusion Complete two-dimensional, color flow and Doppler transthoracic echocardiogram is performed. Reason for Poor Study: poor patient cooperation Summary 1. Technically difficult study with limited views. 2. Left ventricular chamber dimension is normal. 3. Left ventricular systolic function is normal, estimated at 65-70%. 4. Right ventricular systolic function is normal. 5. There is mild mitral valve regurgitation. 6. There is mild tricuspid valve regurgitation. 7. There is trivial anterior pericardial effusion. Left Ventricle Left ventricular chamber dimension is normal. Left ventricular systolic function is normal, estimated at 65-70%. There is no increased left ventricular wall thickness. Right Ventricle Right ventricular chamber dimension is normal. Right ventricular systolic function is normal. Left Atria Left atrial chamber dimension is normal. Right Atria Right atrial chamber dimension is normal. Aortic Valve The aortic valve is not well visualized. There is no aortic valve stenosis. There is no aortic valve regurgitation. There is mild aortic valve calcification. Pulmonic Valve The pulmonic valve is not well visualized. Mitral Valve There is mild mitral valve regurgitation. Tricuspid Valve There is mild tricuspid valve regurgitation. Pericardium/Pleural There is trivial anterior pericardial effusion. Inferior Vena Cava Inferior vena cava is not well visualized. Aorta The aortic root size at the sinus of Valsalva is normal. Left Ventricular Outflow Tract Name Value Normal LVOT 2D LVOT Diameter 1.9 cm LVOT Doppler LVOT Peak Gradient 2 mmHg LVOT Mean Gradient 1 mmHg LVOT VTI 11 cm LVOT VTI/AV VTI Ratio 0.9 LVOT Stroke Volume 32 ml LVOT CO 3.3 l/min LVOT CI 2.2 l/min/m2 Pulmonic Valve Name Value Normal RVOT Doppler RVOT Peak Gradient 1 mmHg PV Doppler PV Peak Gradient 1 mmHg Mitral Valve Name Value Normal
[2023-06-07] MEDS: AMPICILLIN SULB 3 GM/NS 100 ML 3 GM/100 ML VIAL IVPB ×2 (00:50→05:30)
[2023-06-07] MEDS: SALINE LOCK FLUSH 10 ML IV PUSH ×3 (05:30→23:15)
[2023-06-07 05:33] LABS: Legionella pneumophila Ag Ur Not Detected (Not Detected)
[2023-06-07 07:06] LABS: Glucose Point of Care 200 mg/dl (65-105)
[2023-06-07 08:26] LABS: Glucose Point of Care 143 mg/dl (65-105)
[2023-06-07] MEDS: FLUTICASONE/UMECLIDIN/VILANTER 100-62.5-25 MCG ELLIPTA 1 PUFF INHALATION (09:03)
[2023-06-07] MEDS: ACIDOPHILUS/BULGARICUS CHEWABLE TABLET 1 TABLET PO ×2 (10:16→12:49)
[2023-06-07] MEDS: METOPROLOL SUCCINATE EXT REL 25 MG TABCR PO (10:16)
[2023-06-07] MEDS: VALSARTAN 80 MG TABLET PO (10:17)
[2023-06-07] MEDS: DULoxetine HCL 30 MG CAPSULE.DR PO (10:17)
[2023-06-07] MEDS: PANTOPRAZOLE 40 MG TABLET PO (10:17)
[2023-06-07] MEDS: LIPASE/AMYLASE/PROTEASE 12,000 UNITS CAP 6 CAP PO ×2 (10:17→12:48)
[2023-06-07] MEDS: CALCIUM CARBONATE (OSCAL) 500 MG TABLET PO (10:17)
[2023-06-07] MEDS: ASPIRIN 81 MG ENTERIC TABLET PO (10:18)
[2023-06-07] MEDS: POTASSIUM CHLORIDE 20 MEQ ER TABLET PO (10:18)
[2023-06-07] MEDS: FERROUS SULFATE 325 MG TABLET DR BY MOUTH (10:18)
[2023-06-07] MEDS: MAGNESIUM OXIDE 400 MG TABLET PO (10:18)
[2023-06-07 10:26] LABS: Basophils Absolute Auto 0.1 K/mm3 (0.0-0.1); Basophils Percent Auto 0.4 % (0.2-1.2); Eosinophils Percent Auto 0.2 % (0-4.4); Hematocrit 35.4 % (37.0-47.0); Immature Granulocyte Absolute 0.15 K/mm3 (0.00-0.031); Immature Granulocyte Percent A 1.2 % (0-0.5); Lymphocytes Absolute Auto 1.75 K/mm3 (0.9-3.2); Lymphocytes Percent Auto 13.8 % (18.3-44.2); Mean Corpuscular HGB Conc 31.1 g/dl (32-36); Mean Corpuscular Hemoglobin 28.1 pg (26-34); Mean Corpuscular Volume 90.5 fl (80-100); Mean Platelet Volume 11.4 fl (7.4-10.4); Monocytes Absolute Auto 0.7 K/mm3 (0.1-0.6); Monocytes Percent Auto 5.4 % (2.6-8.5); Nucleated Red Blood Cells Perc 0.2 % (0.0-0.2); Platelet Count Result 151 k/mm3 (150-375); Red Blood Count 3.91 M/mm3 (4.2-5.4); Red Cell Distribution Width 18.9 % (11.5-14.5); White Blood Count 12.7 K/mm3 (4.5-10.0)
[2023-06-07 10:46] LABS: Alanine Aminotransferase 14 U/L (6-35); Albumin Level 2.4 g/dL (3.5-5.1); Alkaline Phosphatase 122 U/L (38-126); Anion Gap 8 mmol/L (8-16); Aspartate Amino Transferase 19 U/L (14-36); Bilirubin,Total 0.9 mg/dL (0.2-1.3); Blood Urea Nitrogen 6 mg/dL (7-17); Calcium 7.9 mg/dL (8.4-10.2); Carbon Dioxide 22 mmol/L (22-30); Chloride 101 mmol/L (98-107); Estimated CRCL calculation 52 ml/min; Estimated Glomerular Filt Rate > 60; Glucose 130 mg/dL (65-110); Magnesium 1.6 mg/dL (1.6-2.3); Potassium 3.3 mmol/L (3.4-5.0); Sodium 131 mmol/L (137-145)
[2023-06-07 12:05] LABS: Glucose Pleural Fluid 216 mg/dL; Total Protein Pleural Fluid <3.0 g/dL
[2023-06-07 12:25] LABS: Glucose Point of Care 338 mg/dl (65-105)
[2023-06-07] MEDS: INSULIN ASPART (*BKC) 100 UNITS/ML SUB-Q ×2 (12:50→17:51)
--- NOTE | 2023-06-07 13:21 | PCPTNOTE ---
Attempted to see patient for PT, however patient declined. Patient reported not right now for PT.
--- NOTE | 2023-06-07 14:53 | PM.IMPN ---
Progress Note: A&P Assessment and Plan (1) Pleural effusion on left: Code(s): J90 - Pleural effusion, not elsewhere classified Status: Acute Assessment and Plan: Chest CT shows large left pleural effusion and a 2.3 cm fluid collection within the parenchymal of left lower lobe -thoracentesis ordered -patient started on Unasyn and vancomycin. MRSA negative. Stopping IV vanco and added azithromycin for atypical coverage. -leukocytosis of 17.4 on admission, afebrile, tachycardic -currently on 3 L nasal cannula sating 100% -positive COVID 06/02: Patient on room air sating 97-100%. Analysis of pleural fluid a transudate with neutrophils present. Leukocytosis is resolving. 06/03: White count 9.6. Patient has been afebrile. She still does not require oxygen. Sating 97% air. Pleural fluid studies still pending. 06/04: WBC 7.8 today. Preop cultures on pleural fluid with no organism seen. Blood cultures with no growth today. Urine culture was inconclusive. Patient is not requiring oxygen and she is not short of breath. Should be able to deescalate her antibiotics to oral today. 06/05: No organism seen on pleural Gram stain. A aerobic cultures from pleural fluid of no growth with no organisms seen, anaerobic culture no growth to date. Her white count jumped today does 13 after 1 unit of blood. Will repeat CBC at noon today. Repeat chest x-ray 06/06: A fungal culture from pleural fluid with no organism seen. White count is 12.7. Afebrile. Repeating chest x-ray today after diuresing Lasix. (2) Hyperglycemia: Code(s): R73.9 - Hyperglycemia, unspecified Status: Acute Assessment and Plan: Blood glucose 205 this morning Hemoglobin A1c 8.9% A.c. HS Accu-Cheks Hypoglycemia orders and corrective low-dose sliding scale 06/02: Blood glucose remains in the 200s. Will start on Lantus 5 units at bedtime. 06/03: Glucose on BMP was 65. Will stop HS sliding scale insulin. POC glucose was 56. Stopping Lantus. Started on D5 normal saline 100 for today. 06/04: Stopped Lantus, stop dextrose infusion, continue with low-dose sliding scale 06/05: Blood sugars reviewed. Glucose is ranging from 161-282. 06/06: Adjust from moderate sliding scale (3) SARS-CoV-2 positive: Code(s): U07.1 - COVID-19 Status: Acute Assessment and Plan: Positive on admission. She has had COVID for over 2 weeks. No isolation necessary RESOLVED. (4) Abnormal computed tomography of abdomen and pelvis: Code(s): R93.5 - Abnormal findings on diagnostic imaging of other abdominal regions, including retroperitoneum Status: Acute Assessment and Plan: CT findings as followed, Large left pleural effusion with near complete left lower lobe atelectasis and partial right upper lobe atelectasis. 2.3 cm fluid collection within the parenchyma of the left lower lobe, indeterminate. Small pulmonary abscess is a potential consideration versus other cystic lesions. Small right pleural effusion. Mild to moderate upper lobe emphysema. Markedly heterogeneous appearance of the spleen with areas of intraperitoneal cystic change or fluid collection/towards the superior aspect. There are also endovascular coils in the splenic hilum. Findings could reflect chronic changes related to prior splenic trauma or infarcts, versus possibly acute splenic laceration. Correlate with any relevant recent trauma. No evidence of intraperitoneal hemorrhage. Chronic pancreatitis with main pancreatic stent present. Small at the pelvic ascites. Extensive atherosclerotic disease, with high-grade stenoses at the proximal left subclavian artery, left common iliac artery, and complete occlusion at the right common iliac artery. Diffuse fatty infiltration of liver. 06/02: Order for ABIs placed yesterday. Awaiting for test to be completed. Suspect this is likely chronic ischemia and likely does not require urgent transfer 06/03: Moderately decreas
[2023-06-07] MEDS: ACETAMINOPHEN 325 MG TABLET 650 MG PO (15:48)
[2023-06-07 17:29] LABS: Glucose Point of Care 305 mg/dl (65-105)
[2023-06-07] MEDS: IPRATROPIUM 0.5 MG/ALBUTEROL SULFATE 2.5 MG AMPUL.NEB 3 ML INHALATION (20:06)
[2023-06-07 21:25] LABS: Glucose Point of Care 225 mg/dl (65-105)
[2023-06-08] VITALS (12 sets, daily range): BP systolic 142–153; BP diastolic 80–87; PULSE 95–112; RESP 14–20; TEMP 36.5–36.8; O2SAT 90–96
[2023-06-08] MEDS: FLUTICASONE/UMECLIDIN/VILANTER 100-62.5-25 MCG ELLIPTA 1 PUFF INHALATION (08:42)
[2023-06-08] MEDS: IPRATROPIUM 0.5 MG/ALBUTEROL SULFATE 2.5 MG AMPUL.NEB 3 ML INHALATION ×3 (08:42→20:14)
[2023-06-08] MEDS: DULoxetine HCL 30 MG CAPSULE.DR PO (09:37)
[2023-06-08] MEDS: METOPROLOL SUCCINATE EXT REL 25 MG TABCR PO (09:37)
[2023-06-08] MEDS: PANTOPRAZOLE 40 MG TABLET PO ×2 (09:44→17:46)
--- NOTE | 2023-06-08 11:50 | PM.IMPN ---
Progress Note: A&P Assessment and Plan (1) Pleural effusion on left: Code(s): J90 - Pleural effusion, not elsewhere classified Status: Acute Assessment and Plan: Chest CT shows large left pleural effusion and a 2.3 cm fluid collection within the parenchymal of left lower lobe -thoracentesis ordered -patient started on Unasyn and vancomycin. MRSA negative. Stopping IV vanco and added azithromycin for atypical coverage. -leukocytosis of 17.4 on admission, afebrile, tachycardic -currently on 3 L nasal cannula sating 100% -positive COVID 06/02: Patient on room air sating 97-100%. Analysis of pleural fluid a transudate with neutrophils present. Leukocytosis is resolving. 06/03: White count 9.6. Patient has been afebrile. She still does not require oxygen. Sating 97% air. Pleural fluid studies still pending. 06/04: WBC 7.8 today. Preop cultures on pleural fluid with no organism seen. Blood cultures with no growth today. Urine culture was inconclusive. Patient is not requiring oxygen and she is not short of breath. Should be able to deescalate her antibiotics to oral today. 06/05: No organism seen on pleural Gram stain. A aerobic cultures from pleural fluid of no growth with no organisms seen, anaerobic culture no growth to date. Her white count jumped today does 13 after 1 unit of blood. Will repeat CBC at noon today. Repeat chest x-ray 06/06: A fungal culture from pleural fluid with no organism seen. White count is 12.7. Afebrile. Repeating chest x-ray today after diuresing Lasix. 06/07: repeat chest x-ray shows moderate effusion bilaterally (2) Hyperglycemia: Code(s): R73.9 - Hyperglycemia, unspecified Status: Acute Assessment and Plan: Blood glucose 205 this morning Hemoglobin A1c 8.9% A.c. HS Accu-Cheks Hypoglycemia orders and corrective low-dose sliding scale 06/02: Blood glucose remains in the 200s. Will start on Lantus 5 units at bedtime. 06/03: Glucose on BMP was 65. Will stop HS sliding scale insulin. POC glucose was 56. Stopping Lantus. Started on D5 normal saline 100 for today. 06/04: Stopped Lantus, stop dextrose infusion, continue with low-dose sliding scale 06/05: Blood sugars reviewed. Glucose is ranging from 161-282. 06/06: Adjust from moderate sliding scale 06/07: initially stopped sliding scale insulin re-initiated in the evening after finding out about hospice/full care as described above (3) SARS-CoV-2 positive: Code(s): U07.1 - COVID-19 Status: Resolved Assessment and Plan: Positive on admission. She has had COVID for over 2 weeks. No isolation necessary RESOLVED. (4) Abnormal computed tomography of abdomen and pelvis: Code(s): R93.5 - Abnormal findings on diagnostic imaging of other abdominal regions, including retroperitoneum Status: Acute Assessment and Plan: CT findings as followed, Large left pleural effusion with near complete left lower lobe atelectasis and partial right upper lobe atelectasis. 2.3 cm fluid collection within the parenchyma of the left lower lobe, indeterminate. Small pulmonary abscess is a potential consideration versus other cystic lesions. Small right pleural effusion. Mild to moderate upper lobe emphysema. Markedly heterogeneous appearance of the spleen with areas of intraperitoneal cystic change or fluid collection/towards the superior aspect. There are also endovascular coils in the splenic hilum. Findings could reflect chronic changes related to prior splenic trauma or infarcts, versus possibly acute splenic laceration. Correlate with any relevant recent trauma. No evidence of intraperitoneal hemorrhage. Chronic pancreatitis with main pancreatic stent present. Small at the pelvic ascites. Extensive atherosclerotic disease, with high-grade stenoses at the proximal left subclavian artery, left common iliac artery, and complete occlusion at the right common iliac artery. Diffuse fatty infiltratio
[2023-06-08] MEDS: LIPASE/AMYLASE/PROTEASE 12,000 UNITS CAP 6 CAP PO ×2 (13:05→17:46)
[2023-06-08] MEDS: SALINE LOCK FLUSH 10 ML IV PUSH ×2 (13:07→21:10)
[2023-06-08 13:59] LABS: Amylase, Pleural Fluid <10 U/L
[2023-06-08 20:44] LABS: Albumin Pleural Fluid 0.7 g/dL
[2023-06-08] MEDS: SIMVASTATIN 10 MG TABLET PO (21:09)
[2023-06-08] MEDS: NORTRIPTYLINE HCL 25 MG CAPSULE PO (21:09)
[2023-06-08] MEDS: INSULIN HUMAN REGULAR (*BKC) 100 UNITS/ML 8 UNITS SUB-Q (22:15)
[2023-06-08 22:18] LABS: Glucose Point of Care 450 mg/dl (65-105)
[2023-06-09] MEDS: SALINE LOCK FLUSH 10 ML IV PUSH ×2 (06:17→17:58)
[2023-06-09 06:30] LABS: Basophils Percent Auto 0.3 % (0.2-1.2); Eosinophils Percent Auto 0.3 % (0-4.4); Hematocrit 35.6 % (37.0-47.0); Hemoglobin 10.9 g/dL (12.0-15.0); Immature Granulocyte Absolute 0.18 K/mm3 (0.00-0.031); Immature Granulocyte Percent A 1.2 % (0-0.5); Lymphocytes Absolute Auto 2.22 K/mm3 (0.9-3.2); Lymphocytes Percent Auto 15.1 % (18.3-44.2); Mean Corpuscular HGB Conc 30.6 g/dl (32-36); Mean Corpuscular Hemoglobin 27.9 pg (26-34); Mean Corpuscular Volume 91.3 fl (80-100); Monocytes Absolute Auto 0.7 K/mm3 (0.1-0.6); Neutrophils Absolute Auto 11.5 K/mm3 (1.3-6.7); Neutrophils Percent Auto 78.1 % (45.5-73.1); Platelet Count Result 205 k/mm3 (150-375); Red Cell Distribution Width 19.5 % (11.5-14.5); White Blood Count 14.7 K/mm3 (4.5-10.0)
[2023-06-09 06:41] LABS: Alanine Aminotransferase 12 U/L (6-35); Albumin Level 2.4 g/dL (3.5-5.1); Alkaline Phosphatase 126 U/L (38-126); Anion Gap 2 mmol/L (8-16); Aspartate Amino Transferase 18 U/L (14-36); Bilirubin,Total 0.6 mg/dL (0.2-1.3); Blood Urea Nitrogen 19 mg/dL (7-17); Calcium 8.1 mg/dL (8.4-10.2); Carbon Dioxide 27 mmol/L (22-30); Chloride 102 mmol/L (98-107); Estimated CRCL calculation 60 ml/min; Estimated Glomerular Filt Rate > 60; Glucose 97 mg/dL (65-110); Magnesium 1.8 mg/dL (1.6-2.3); Potassium 3.9 mmol/L (3.4-5.0); Sodium 131 mmol/L (137-145)
[2023-06-09 06:57] VITALS: BP 148/82; PULSE 80; RESP 18; TEMP 36.6; O2SAT 95
[2023-06-09 08:18] LABS: Glucose Point of Care 131 mg/dl (65-105)
[2023-06-09] MEDS: VALSARTAN 80 MG TABLET PO (09:19)
[2023-06-09] MEDS: CALCIUM CARBONATE (OSCAL) 500 MG TABLET PO ×2 (09:19→17:58)
[2023-06-09] MEDS: DULoxetine HCL 30 MG CAPSULE.DR PO (09:19)
[2023-06-09] MEDS: MAGNESIUM OXIDE 400 MG TABLET PO (09:19)
[2023-06-09] MEDS: ASPIRIN 81 MG ENTERIC TABLET PO (09:19)
[2023-06-09] MEDS: FERROUS SULFATE 325 MG TABLET DR PO (09:19)
[2023-06-09] MEDS: LIPASE/AMYLASE/PROTEASE 12,000 UNITS CAP 6 CAP PO ×3 (09:19→17:58)
[2023-06-09] MEDS: PANTOPRAZOLE 40 MG TABLET PO ×2 (09:19→17:59)
[2023-06-09 09:20] VITALS: PULSE 113
[2023-06-09] MEDS: POTASSIUM CHLORIDE 20 MEQ ER TABLET PO (09:20)
[2023-06-09] MEDS: METOPROLOL SUCCINATE EXT REL 25 MG TABCR PO (09:20)
[2023-06-09] MEDS: ACETAMINOPHEN 325 MG TABLET 650 MG PO (09:23)
[2023-06-09 09:53] VITALS: PULSE 115; RESP 16; O2SAT 95
[2023-06-09] MEDS: FLUTICASONE/UMECLIDIN/VILANTER 100-62.5-25 MCG ELLIPTA 1 PUFF INHALATION (09:53)
[2023-06-09] MEDS: IPRATROPIUM 0.5 MG/ALBUTEROL SULFATE 2.5 MG AMPUL.NEB 3 ML INHALATION ×2 (09:53→14:29)
[2023-06-09 10:02] VITALS: PULSE 117; RESP 16
[2023-06-09] MEDS: ALBUMIN HUMAN 25% 25 GM/100 ML 100 ML IVPB (11:18)
[2023-06-09] MEDS: SODIUM CHLORIDE 0.9% IV 500 ML 250 ML IV CONT (11:33)
[2023-06-09 12:20] LABS: Glucose Point of Care 388 mg/dl (65-105)
[2023-06-09] MEDS: AMOXICILLIN/CLAVULANATE K 875-125 MG TAB 1 TABLET PO (12:30)
[2023-06-09] MEDS: INSULIN ASPART (*BKC) 100 UNITS/ML SUB-Q ×2 (12:33→18:04)
--- NOTE | 2023-06-09 12:47 | PM.DS ---
DS: Admitting Diagnosis Discharge Date 06/09/2023 Admitting Diagnosis Pleural effusion on left, C diff diarrhea, hyperglycemia, COVID-19, abnormal CT of abdomen and pelvis, abnormal urinalysis, normocytic anemia, COPD, peripheral vascular disease DS: Discharge Diagnosis Discharge Diagnosis (1) Pleural effusion on left: Code(s): J90 - Pleural effusion, not elsewhere classified Status: Acute (2) Hyperglycemia: Code(s): R73.9 - Hyperglycemia, unspecified Status: Acute (3) SARS-CoV-2 positive: Code(s): U07.1 - COVID-19 Status: Resolved (4) Abnormal computed tomography of abdomen and pelvis: Code(s): R93.5 - Abnormal findings on diagnostic imaging of other abdominal regions, including retroperitoneum Status: Acute (5) Abnormal urinalysis: Code(s): R82.90 - Unspecified abnormal findings in urine Status: Resolved (6) Normocytic anemia: Code(s): D64.9 - Anemia, unspecified Status: Acute (7) Chronic obstructive pulmonary disease: Code(s): J44.9 - Chronic obstructive pulmonary disease, unspecified Status: Acute (8) Peripheral vascular disease: Code(s): I73.9 - Peripheral vascular disease, unspecified Status: Acute Plan Discharge home with [facility] DS: Summary Hospital Course Reason for hospitalization: Patient was admitted weakness confusion recent COVID positive test recent C diff with findings large left pleural effusion and a fluid collection the left lower lobe. Hospital Course: Patient had thoracentesis of the left pleural effusion with nearly 1000 mL of fluid withdrawn. She was treated IV antibiotics for pneumonia. Patient is overall frail cachectic has not been eating drinking well losing a lot weight. Family decided that they did not want her to go back to the senior care and instead wanted to bring her home on hospice care. However, even after hospice was arranged family wanted to continue home medications and optimize patient condition prior to discharge home. Conversation with the daughter reveals the daughter still hoping the mother recovers from this illness and does not pass away. Seven days of antibiotic treatment was completed but WBC elevated again today so Augmentin ordered again for another 5 days. Patient also received some saline and albumin today prior to discharge due to poor oral intake/dehydration. Status at Discharge Cognitive/behavioral status at discharge: Awake alert sad Functional status at discharge: wheelchair bound Overall status at discharge: patient is not back to baseline Time Spent with Patient Time attestation: Total time spent providing and/or coordinating discharge services: 45 minutes Time spent: Greater than 30 minutes Exam Narrative: General: cachectic, frail, elderly HEENT: normocephalic, atraumatic. Mucous membranes tacky, EOMI, PERRLA, bilateral sclera anicteric, no conjunctival injection. Neck supple without JVD, lymphadenopathy, or bruit. Respiratory: diminished to auscultation bilaterally. No rales/rhonchi/wheezes. Cardiovascular: Regular rhythm, tachycardia, normal S1-S2 upon auscultation. No murmurs, rubs, or clicks. PMI is nondisplaced, capillary re-fill greater than 3 seconds. Abdomen: Soft, flat, no pulsatile masses, non-distended and non-tender. No rebound, no guarding. No CVA tenderness, no hepatosplenomegaly. Bowel sounds present to all four quadrants. Extremities: No cyanosis, clubbing, or edema present. Pulses are palpable radial 2/pedal faint doppler. Active ROM to all four extremities. Pale, cool feet. Neuro: Alert and orientated x 2. PERRLA. Cranial nerves 2-12 intact without focal deficit. Skin: Warm, dry, and intact, without rash, erythema, or lesion. Generalized bruising. Psych: alert, sad/dysthymic, normal speech, normal affect, no hallucinations, no dysarthria DS: Data Data Completed and Pending Completed studies during hospitalization: Pending
--- NOTE | 2023-06-09 12:50 | PCNFU ---
Nutrition Follow-Up Complete: Inadequate energy intake related to NPO status as evidenced by current diet orders Goal: Diet order Pt current nutrition is Minced and moist, heart healthy. Ensure compact BID, DUTCH BID. Nutrition recommendation: Last recorded weight is 42.5 kg. Bowel Motility: Labs Reviewed:Hgb:10.9, HCT:35.6, NA:131, BUN:19, Cr:0.5 Meds Noted: novolog, protonix, KCL Skin: DTPI Additional Notes: Pt continues on same diet, intake 25-40%, ate better this morning per nurse. Pt is being discharged today on hospice care. Monitor diet orders, intake, wt, labs. Follow up in 7 days.
--- NOTE | 2023-06-09 13:26 | WPDCDIQUERY2 ---
CDI Query Clarification Request Documentation in the medical record indicates that patient has been diagnosed with COVID and Pneumonia. Patient received Unasyn 3 gm Q 6 hrs Positive COVID swab on 06/01/23 Please clarify in the progress notes if known, if there is a cause and effect relationship between COVID and pneumonia. There is a cause and effect relationship between COVID and pneumonia. There is not a cause and effect relationship between COVID and pneumonia. Unknown if there is cause and effect relationship between COVID and pneumonia. <Sruthi Melgar RN - Last Filed: 06/09/23 13:34> Clarified Diagnosis Clarified Diagnosis: It is believed that COVID is a likely cause pneumonia in this patient which may have also had a secondary bacterial component. <Lm Watts, RISK MANAGEMENT SPECIALIST - Last Filed: 06/09/23 15:21>
[2023-06-09 14:29] VITALS: PULSE 116; RESP 16
[2023-06-09 14:38] VITALS: PULSE 106; RESP 16
[2023-06-09 17:21] LABS: Glucose Point of Care 270 mg/dl (65-105)
[2023-06-09] MEDS: NEOMYCIN/POLYMYXIN/BACITRACIN OINTMENT PACKET 1 PACKET (17:58)
[2023-06-09 18:57] LABS: Platelet Antibody, Direct NEGATIVE (NEGATIVE)
== END 2023-06-09 18:44 | disposition hospice, home (50) | DRG 186 ==
LOC: ANHED 14:41 → ANHIMU 15:41 → ANH3MED 06-03 14:54
PROVIDERS: Nurse Practitioner Acute Care; Nurse Practitioner Family; Physician Assistant; Admitting Provider Internal Medicine; Emergency Provider Student in an Organized Health Care Education/Training Program; PCP Family Medicine; Visit Provider Nurse Practitioner
DX: J90 Pleural effusion, not elsewhere classified (principal); J12.82 Pneumonia due to coronavirus disease 2019; J18.9 Pneumonia, unspecified organism; U07.1 COVID-19; A04.72 Enterocolitis due to Clostridium difficile, not specified as recurrent; N39.0 Urinary tract infection, site not specified; J44.0 Chronic obstructive pulmonary disease with (acute) lower respiratory infection; J96.11 Chronic respiratory failure with hypoxia; R64 Cachexia; Z68.1 Body mass index [BMI] 19.9 or less, adult; I10 Essential (primary) hypertension; I70.8 Atherosclerosis of other arteries; R73.9 Hyperglycemia, unspecified; E16.2 Hypoglycemia, unspecified; E78.5 Hyperlipidemia, unspecified; D50.9 Iron deficiency anemia, unspecified; D69.6 Thrombocytopenia, unspecified; Z99.81 Dependence on supplemental oxygen; Z99.3 Dependence on wheelchair
CPT/HCPCS: 32555; 36415; 36430; 36569; 70450; 71045; 71046; 71260; 74177; 80053; 81001; 82040; 82042; 82150; 82247; 82465; 82607; 82728; 82746; 82945; 82948; 83036; 83540; 83550; 83605; 83615; 83735; 83880; 83986; 84134; 84145; 84155; 84157; 84311; 84443; 84478; 84484; 85025; 85027; 85610; 85730; 86023; 86140; 86703; 86738; 86803; 86850; 86900; 86901; 86923; 87040; 87070; 87075; 87086; 87088; 87102; 87205; 87206; 87340; 87449; 87522; 87637; 87641; 87899; 88108; 88184; 88305; 89051; 93005; 93306; 93922; 93970; 94640; 96365; 96368; 97110; 97161; 97165; 97530; 97535; 99285; A9270; G0432; J0295; J0692; J1756; J1815; J1836; J1940; J2405; J3370; J3475; J7040; J7042; J7050; J7120; P9016; P9047; Q9967